=== PATIENT | male | born 1960 | race Caucasian/White ===

== ENCOUNTER 2019-12-13 13:27 | Outpatient (CLI) | payer BC, SELFPAY ==
--- NOTE | ~2019-12-13 | MR_ITS ---
EXAMINATION: MR brain/brain stem wo/w con DATE: 12/13/2019 14:28 INDICATION: Tremor, unspecified. TECHNIQUE: Magnetic resonance imaging (MRI) of the brain and brainstem was performed without and with 20 mL MultiHance intravenous contrast. Sequences included sagittal and axial T1-weighted FSE, axial diffusion-weighted FS EPI, axial T2*-weighted GRE, axial T2-weighted FLAIR Propeller, and axial T2-we ighted Propeller. Postcontrast sequences included axial and coronal T1-weighted FSE. Apparent diffusi on coefficient (ADC) maps were created. COMPARISON: Head CT 10/27/2017 FINDINGS: There are scattered areas of nonspecific increased T2-weighted signal intensity in the cere bral white matter, which is within normal limits for the patient's age. There is no intracranial hemo rrhage, acute infarction, or abnormal intracranial mass lesion. The ventricles are normal in size. Ri ght maxillary sinus is small and almost completely opacified. There is mild mucosal thickening in the other paranasal sinuses. There is a trace right mastoid effusion. IMPRESSION: 1. Normal aging brain. 2. Silent sinus syndrome involving right maxillary sinus. Reviewed, dictated and finalized at location B.
[2019-12-13 14:02] LABS: Estimated Glomerular Filt Rate > 60
== END 2019-12-13 13:28 | disposition home or self-care (01) ==
LOC: ANHIMG 13:39
PROVIDERS: PCP Family Medicine; Visit Provider Family Medicine
DX: R25.1 Tremor, unspecified (principal); L98.8 Other specified disorders of the skin and subcutaneous tissue
CPT/HCPCS: 70553; A9577

== ENCOUNTER 2024-07-05 12:41 | Outpatient (CLI) | payer BC, SELFPAY ==
--- NOTE | ~2024-07-05 | US_ITS ---
EXAM: Focused ultrasound examination of the soft tissues of the left upper trunk HISTORY: R22.2 - Localized swelling, mass and lump, trunk TECHNIQUE: Sonographic evaluation of the soft tissues of the left upper trunk were performed assessin g grayscale appearance and color Doppler flow. COMPARISON: None. FINDINGS: Within the area of palpable concern is a hyperechoic well-circumscribed focus measuring 7.5 x 3.8 x 9 .5 cm, consistent with a lipoma. Sonographic evaluation of the remainder of the soft tissues of the left upper trunk demonstrate benig n fibrofatty and fibromuscular elements without a cystic or solid lesion of concern. IMPRESSION: Lipoma within the area of palpable concern, as detailed above. Reviewed, dictated and finalized at location A.
--- OUTSIDE RECORDS SUMMARY | 2024-07-05 13:03 | XMS_ITS | Encounter Summary ---
Author Organization [facility] Address [address] [place] [id number] Care Team Providers Care Outbound Supervisor Name Role Phone Lakhwinder Romero MD Primary Care Provider [phone] Eldon Andrew MD Unavailable Encounter Details Date Type Department Care Team (Late st Contact Info) Description 10/28/2019 Hospital Orders Only [facility] Telemetry [address] [place], [place] [id number] Rogerio Milton MD [facility]. [facility] [address] [place], [place] [id number] Social History Tobacco Use Types Packs/Day Years Used Date Smoking Tobacco: Never Smokeless Tobacco: Never Alcohol Use Standard Drinks/Week Comments Yes 0 (1 standard drink = 0.6 oz pur e alcohol) AUDIT-C Answer Date Recorded Frequency of Alcohol Consumption 2-3 times glenn french 02/16/2018 Average Number of Drinks Not on file 018 Frequency of Binge Drinking Not on file 04/2017 Sex and Gender Information Value Date Recorded Sex Assigned at Not on file Legal Sex Male 8:50 PM CDT Gender Identity Not on file Sexual Orientation Not on file Occupation Industry Job Start Date Job End Date Not on file Not on file Not on file Not on file COVID-19 Exposure Response Date Recorded In the last month, have you been in contact with someone who was confirmed or suspected to have Coronavirus / COVID-19? No / Unsure 10/29/2019 6:31 AM CDT documented as of this encounter Plan of Treatment Upcoming Encounters Date Type Department Care Team (Late st Contact Info) Description 08/20/2024 10:15 AM CDT [facility] [address] [place] [address] Diane Beckett, RICARDO [address] [facility] [address] [place], [place] [id number] documented as of this encounter Visit Diagnoses Not on filedocumented in this encounter Care Teams Outbound Supervisor Relationship Specialty Start Date End Date Lakhwinder Romero MD [address] [place] [address] PCP - General FAMILY PRACTICE 01/24/18 Eldon Andrew MD [facility]. [address] [place] [address] [place] [employer] Rental Clerk CARDIOVASCULAR DISEASE 02/07/18 documented as of this encounter
--- OUTSIDE RECORDS SUMMARY | 2024-07-05 13:03 | XMS_ITS | Clinical Summary ---
Author Organization [facility] [address] Address [address] [place] [address] Care Team Providers Care Plate Keeper Name Role Phone Lakhwinder Romero MD Primary Care Provider [phone] Joselin Kam MD Unavailable Medhat Hsieh MD Unavailable [phone] Allergies No known active allergies Medications fenofibrate nanocrystallized (TRICOR,TRIGLIDE) 145 mg tablet take 1 tablet by oral route every day 90 3 01/12/20 16 Active aspirin (ASPIR-81) 81 mg tablet take 1 Tablet by oral route every day 0 0 01/12/20 16 Active Additional Information Patient not taking.Reported on 01/09/2024 amLODIPine (NORVASC) 5 mg tablet Take 0.5 tablets (2.5 mg total) by mouth daily 10/30/19 22 Active atorvastatin (LIPITOR) 20 mg tablet Take 1 tablet (20 mg total) by mouth every evening Active clopidogreL (PLAVIX) 75 mg tablet Take 1 tablet (75 mg total) by mouth daily Active clonazePAM (KlonoPIN) 0.5 mg tablet Take 0.5 tablets (0.25 mg total) by mouth nightly 45 tablet 3 01/09/20 24 025 Active carbidopa-levodopa (SINEMET) 25-100 mg per tablet Take 4 tabs at 600, 3 tabs at 1200 and 4 tabs at 2000 990 tablet 3 04/16/20 24 Active Active Problems Problem Noted Date Diagnosed Date CAD (coronary artery disease) 10/17/2023 Hypertension, essential, benign 10/17/2023 PD (Parkinson's disease) 11/11/2021 Assessment & Plan (10/17/2023 10:36 AM CDT): Mr. 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 He had some early imbalance, REM behavior. He initially had an incomplete response to levodopa but his symptom complex was most consistent with idiopathic PD. Historically he has also complained of some short term memory loss (though history of multiple concussions) but had no cognitive impairment on MOCA/MMSE in 2022. He had no cerebellar symptoms and besides erectile dysfunction had no autonomic symptoms making MSA less likely. PSP and CBD are also unlikely. Should he have brain imaging it would be good to look at since he had vascular disease, but the onset and progression thus far continue look more like idiopathic PD. When he increased his levodopa from 3 tabs to 4 tabs he noticed improvement in tremor and shuffling gait. He has intervally decided to reduce back to 3 tablets and is currently satisfied with his current levodopa benefit though his MDS-UPDRS is worse today than at past visit in terms of rigidity and bradykinesia. Since his last visit he reduced his levodopa without perceived significant change in benefit by him. I suspect his rigidity and bradykinesia are more pronounced today due to this reduction. He can consider gradually increasing back to 4 tabs TID if desired. He continues to have RBD symptoms and has not yet trialed melatonin though we discussed this again at today's visit. At last visit we reviewed safe sleep environment (i.e. removing hard or sharp nearby objects, padding headboard/footboard). He would benefit from PT for gait training and strengthening/stretching exercises for rigidity as well as speech therapy for his hypophonia that has become more bothersome. In the past he has been reluctant to participate in either due to time constraints as he and his are already coordinating multiple therapy and home services for their child. I provided him with external referrals for both PT and ST and encouraged him to even be seen for a couple of visits to get baseline recommendations and individualized exercises for him to work on at home. As for his bilateral foot pain, the etiology remains unclear but it has overall improved in both frequency and severity since at last visit. It had been evaluated by his PCP and subsequently a warp changer (records not available for review) and underwent cortisone injections with partial relief. The pain he has described in the past is in the superficial peroneal distribution. He continues to deny any numbness or paraesthesias. At last visit he was noticed to have reduced vibratory sensation at bilateral distal interphalangeal joints though intact proprioception, and still does not have weakness on exam today. He will monitor for development of any new symptoms and I recommended he continue to follow-up with his warp changer though he will likely seek to establish podiatry care elsewhere. Recommendations: Can consider gradually increasing carbidopa-levodopa back to 4 tablets three times a day from 3 tablets three times a day to see if this helps with stiffness, slowness, shuffling, and dexterity Increase to 3.5 tabs three times a day for 1 week then increase to 4 tabs three times a day For dream enactment, start melatonin 5 mg, and may increase by 1 tab at bedtime every week to goal of about 15-20 mg nightly. Send updates on benefit. Physical therapy referral for gait/balance training, strength/stretching, and exercise regimen recommendations Speech therapy referral for dysarthria and hypophonia Parkinson Voice Project website access instructions provided for a free, self- paced Parkinson Disease speech therapy resource [employer] YouTube exercise channel access instructions provided Follow-up as scheduled with Dr. Kam January 16, 2024 He remains interested in clinical research and at last visit with Dr. Kam, was considered a potential candidate for PIB/PAND or the PT studies, especially the back pain study In the future, should he have incomplete tremor benefit and good cognition in a year Dr. Kam would consider bilateral STN DBS Follow-up with PCP or podiatry for ongoing foot pain Assessment & Plan (07/13/2023 11:14 AM CDT): Mr. 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 He had some early imbalance, REM behavior. He initially had an incomplete response to levodopa but his symptom complex was most consistent with idiopathic PD. Since increasing his levodopa from 3 tabs to 4 tabs he has noticed improvement in tremor and shuffling gait and is currently satisfied with his current levodopa benefit. Historically he has also complained of some short term memory loss (though history of multiple concussions) but had no cognitive impairment on MOCA/MMSE in 2022. He had no cerebellar symptoms and besides erectile dysfunction had no autonomic symptoms making MSA less likely. PSP and CBD are also unlikely. Should he have brain imaging it would be good to look at since he had vascular disease, but the onset and progression thus far continue look more like idiopathic PD. Since his last visit his RBD symptoms have become more frequent and bothersome with recent injuries. Though he does not have insomnia, we discussed a trial of melatonin to see if this may improve the severity of his RBD symptoms. We also discussed ensuring a safe sleep environment (i.e. removing hard or sharp nearby objects, padding headboard/footboard). He is currently most interested in further evaluation of his bilateral anterior foot pain, of which the etiology remains unclear. He has already been evaluated by his PCP and subsequently a warp changer (records not available for review) and underwent cortisone injections with only partial relief. The pain he describes is in the superficial peroneal distribution though at this time he denies any numbness or paraesthesias. He did have reduced vibratory sensation at bilateral distal interphalangeal joints though intact proprioception, and no weakness on exam today. As his pain has become intermittent, we discussed that he journal or make note of the times in which the pain recurs and any activities that precede this as well as observing for any dyskinesias or dystonia in his feet or toes. He does have increased lower extremity rigidity today than in the past and has not done PT or strength/stretching exercises in approximately 1 year. He preferred to see his physical therapist friend at this time rather than placing a formal PT referral but is motivated to work on this. In terms of his hypophonia, he has never done ST and as it is mild at this juncture without any associated dysphagia, he prefers to first try speech exercises through the PD voice project and information on how to access was provided. Recommendations: Resume strength and stretching with your physical therapist as well as working on gait and balance Begin speech therapy exercises through the Parkinson Voice Project (patient instructions given) Start melatonin 3 mg nightly for REM behavior sleep disorder and update us in 1- 2 weeks Monitor foot movements and if you observe any toe or foot curling. Note whether these occur and if so, how they relate to any ongoing foot pain - update our office in 1-2 weeks He will follow-up with me in 3-4 months and as scheduled with Dr. Kam January 16, 2024 He remains interested in clinical research and at last visit with Dr. Kam, was considered a potential candidate for PIB/PAND or the PT studies, especially the back pain study In the future, should he have incomplete tremor benefit and good cognition in a year Dr. Kam would consider bilateral STN DBS Assessment & Plan (01/05/2023 10:32 AM CDT): He had Ciro and Yahr stage 2 parkinsonism characterized by asymmetric resting/postural tremor, bradykinesia, rigidity and postural instability. He had some early imbalance, REM behavior as well as incomplete response to levodopa but his symptom complex was most consistent with idiopathic PD. He also complained of some short term memory loss (though history of multiple concussions). He had no cerebellar symptoms and besides erectile dysfunction had no autonomic symptoms making MSA less likely. PSP and CBD were unlikely. Should he have brain imaging it would be good to look at since he had vascular disease, but the onset and progression look more like PD. He currently took carbidopa/levodopa 3 tabs TID with little benefit and no side effects. I suggested they continue to titrate the dose up to 5 tabs TID. He is interested in clinical research and may be a good candidate for PIB/PAND or the PT studies, especially the back pain study. Should he have incomplete tremor benefit and good cognition in a year I would consider bilateral STN DBS. Assessment & Plan (11/11/2021 9:20 AM CDT): He had Ciro and Yahr stage 2.5 parkinsonism characterized by asymmetric resting/postural tremor, bradykinesia, rigidity and postural instability. He had some early imbalance, REM behavior as well as incomplete response to levodopa but his symptom complex was most consistent with idiopathic PD. He also complained of some short term memory loss (though history of multiple concussions). He had no cerebellar symptoms and besides erectile dysfunction had no autonomic symptoms making MSA less likely. PSP and CBD were unlikely. Should he had brain imaging it would be good to look at since he had vascular disease, but the onset and progression look more like PD. He currently took carbidopa/levodopa 2 tabs TID with little benefit and no side effects. I suggested they continue to titrate the dose up to 3 tabs TID. He will continue to follow up with Dr. Lama who is doing a good job in initiating levodopa treatment for Parkinson disease. He is interested in clinical research and may be a good candidate for PIB/PAND or the PT studies, especially the back pain study. He will need a video when he returns in a year. Should he have incomplete tremor benefit and good cognition in a year I would consider bilateral STN DBS. REM sleep behavior disorder 11/11/2021 Angina pectoris 04/14/2021 Chest pain 04/14/2021 Overview (10/17/2023): Last Assessment & Plan: Given his presentation of chest pain without elevated cardiac enzymes and no acute ischemic changes, I recommended that he undergo nuclear stress testing. I have personally reviewed his nuclear stress test and his echocardiogram and they are both within normal limits. He can be discharged safely from a cardiovascular perspective. Hypersomnolence 11/24/2016 Chronic coronary artery disease 03/16/2016 History of myocardial infarction 03/16/2016 Hypertension 03/16/2016 Dyslipidemia 03/16/2016 Coronary artery stenosis 01/22/2016 Snoring 01/12/2016 Overview (07/29/2016): Snoring Essential hypertension 01/12/2016 Overview (07/29/2016): Essential hypertension Coronary arteriosclerosis in [place] artery 01/11 Overview (07/29/2016): Coronary artery disease involving [place] coronary artery of [place] heart with angina pectoris Hyperlipidemia LDL goal <70 01/12/2016 Overview (07/29/2016): Hyperlipidemia LDL goal <70 Encounters Date Type Department Care Team Description 04/23/2024 Orders Only [facility] Movement Disorders [address] [place] [id number] Joselin Kam MD REM sleep behavior disorder (Primary Dx) from Last 3 Months Immunizations Immunization Administration Dates Next Due Tdap 07/08/2022,08/26/2016 Surgical History Surgery Date Site/Laterality Comments CARPAL TUNNEL RELEASE 04/18/2003 - 04/17/2004 HEART SURGERY 04/18/2015 - 04/17/[address] Medical History Medical History Date Comments Hx Other Medical CAD, carpal patrick shayy syndrome, snoring and probable; Comments: MAF 01/13/2016 - Hypertension Parkinson disease (HCC) Family History Medical History Relation Name Comments No Known Problems Brother Hugo No Known Problems Daughter Dementia Father Ernesto Hypertension Father Ernesto Hypertension; Bone cancer Maternal Grandfather Jas Alzheimer's disease Mother Dominique Alzheime r's disease; Dementia Mother Dominique Dementia; Parkinsonism Other maternal uncle Dementia Paternal Grandfather Wilfred Heart disease Paternal Grandmother Bridgett Stroke Paternal Grandmother Bridgett Atrial fibrillation Sister 1 Nadia Hypertension Sister 1 Nadia No Known Problems Sister 2 Vivienne Hypertension Sister 3 Trupti ADD / ADHD Son 1 Autism spectrum disorder Son 2 Epilepsy Son 2 Relation Name Status Comments Brother Hugo Alive Daughter Alive Father Ernesto (Age 86) Maternal Grandfather Jas Maternal Grandmother Rosey (Age 74) Mother Dominique (Age 84) Other Paternal Grandfather Wilfred (Age 74) Paternal Grandmother Bridgett (Age 72) Sister 1 Nadia Alive Sister 2 Vivienne Alive Sister 3 Trupti Alive Son 1 Alive Son 2 Alive Social History Tobacco Use Types Packs/Day Years Used Date Smoking Tobacco: Never Passive Smoke Exposure: Never Smokeless Tobacco: Never Tobacco Cessation:Counseling Given: Not Answered Alcohol Use Standard Drinks/Week Comments Yes 2 (1 standard drink = 0.6 oz pur e alcohol) Personal Safety Answer Date Recorded Have you ever been in or are you currently in a harmful physical or emotional relationship or is someone making you feel afraid or unsafe? 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 Not on file Not on file Obstetrics History Last Filed Vital Signs Vital Sign Reading Time Taken Comments Blood Pressure 113/75 01/09/2024 3:02 PM CDT Pulse 71 01/09/2024 3:02 PM CDT Temperature 36.3 C (97.3 F) 01/09/2024 3:02 PM CDT Respiratory Rate 16 07/08/2022 2:59 PM CDT Oxygen Saturation 93% 07/08/2022 2:59 PM CDT Inhaled Oxygen Concentration - - Weight 101.4 kg (223 lb 8.7 oz) 01/09/2024 3:02 PM CDT Height 177.8 cm (5' 10 ) 01/09/2024 3:02 PM CDT Body Mass Index 32.08 01/09/2024 3:02 PM CDT Plan of Treatment Health Maintenance Due Date Last Done Comments Colon Cancer Screening-Colonoscopy 1962 Hepatitis C Screening 1960 Prostate Cancer Screening-PSA 1962 Hepatitis B Screening 02/22/1980 Regular Well Visit/Exam 18-64 02/22/1980 Pneumococcal vaccine <65 (1 of 2 - PCV) 1981 Zoster Vaccine (1 of 2) 02/22/2012 Covid-19 Vaccine (4 - season) 2023 04/04/2021, 09/23/2020, 08/26/2020 Influenza Vaccine (#1) 2023 Depression Screening 01/08/2025 01/09/2024 DTaP/Tdap/Td Vaccine (3 - Td or Tdap) 07/08/2032, 08/26/2016 Insurance [facility] CHOICE PLUS BLUE [facility] [place] ANTHEM ACCESS CHOICE BLUE ACC CHOICE OOS ANTHEM ACCESS CHOICE ANTHEM ACCESS CHOICE Advance Directives For more information, please contact: [phone] * Full Code (Latest Code Status on File) Date Activated Date Inactivated Comments 07/19/2019 9:40 PM 07/20/2019 10:32 PM Care Teams Plate Keeper Relationship Specialty Start Date End Date Lakhwinder Romero MD PCP - General 07/16/16 Joselin Kam MD [address] [place] [address] Consulting Physician Neurology 11/11/21 Medhat Hsieh MD [address] [place] [id number] Fellow Neurology 11/11/21
--- OUTSIDE RECORDS SUMMARY | 2024-07-05 13:03 | XMS_ITS | Encounter Summary ---
Author Organization [facility] Address [address] [place] [address] Care Team Providers Care Hospice Liaison Name Role Phone Lakhwinder Romero MD Primary Care Provider [phone] Lakhwinder Romero MD Primary Care Provider [phone] Joselin Kam MD Unavailable Medhat Hsieh MD Unavailable [phone] Encounter Details Date Type Department Care Team (Late st Contact Info) Description 06/07/2016 Orders Only [facility] ProviderBonnie MD [address] [place] [id number] Social History Tobacco Use Types Packs/Day Years Used Date Smoking Tobacco: Never Alcohol Use Standard Drinks/Week Comments Yes 0 (1 standard drink = 0.6 oz pur e alcohol) Sex and Gender Information Value Date Recorded Sex Assigned at Not on file 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 Historical Provider MD [facility] WILLIE SÁNCHEZ Final Result documented in this encounter Visit Diagnoses Not on filedocumented in this encounter Additional Health Concerns Infection Onset Date Last Indicated Resolved Time COVID19 Comment:Per ED RN no concern for COVID and they are not going to test. Joellensofia IPS 07/19/19 07/19/2019 07/19/2019 07/19/2019 6: 44 PM CDT documented as of this encounter Care Teams Hospice Liaison Relationship Specialty Start Date End Date Lakhwinder Romero MD PCP - General 07/16/16 Lakhwinder Romero MD PCP - General 03/05/16 07/15/16 Joselin Kam MD [address] [place] [address] Consulting Physician Neurology 11/11/21 Medhat Hsieh MD [address] [address] Fellow Neurology 11/11/21 documented as of this encounter
--- OUTSIDE RECORDS SUMMARY | 2024-07-05 13:03 | XMS_ITS | Encounter Summary ---
Author Organization [facility] Address [address] [place] [address] Care Team Providers Care Juvenile Officer Name Role Phone Lakhwinder Romero MD Primary Care Provider [phone] Eldon Andrew MD Unavailable [phone] Encounter Details Date Type Department Care Team (Late st Contact Info) Description 07/02/2024 Orders Only [facility] [address] [place] [address] Emiliano Cheek, LABORER POWERHOUSE [address] [address] Social History Tobacco Use Types Packs/Day Years Used Date Smoking Tobacco: Never Smokeless Tobacco: Never Alcohol Use Standard Drinks/Week Comments Not Currently 0 (1 standard drink = 0.6 oz pur e alcohol) AUDIT-C Answer Date Recorded Frequency of Alcohol Consumption 2-3 times a wee k 02/16/2018 Average Number of Drinks Not on file 018 Frequency of Binge Drinking Not on file 04/2017 PHQ-2 Answer Date Recorded PHQ-2 Score - If the patient scores above 3, please move on to questions 3-9 0 02/16/2022 Sex and Gender Information Value Date Recorded Sex Assigned at Not on file Legal Sex Male 8:50 PM CDT Gender Identity Not on file Sexual Orientation Not on file Occupation Industry Job Start Date Job End Date Not on file Not on file Not on file Not on file documented as of this encounter Functional Status * RETIRED Are you deaf or do you have serious difficulty hearing Answer Date of Assessment Author Status No 04/15/2021 5:11 AM CONSULTING SOFTWARE ENGINEER Activ e * RETIRED Are you blind or do you have serious difficulty seeing, even when wearing glasses? Answer Date of Assessment Author Status No 04/15/2021 5:11 AM CONSULTING SOFTWARE ENGINEER Activ e * Do you have serious difficulty walking or climbing stairs? Answer Date of Assessment Author Status No 04/15/2021 5:11 AM Per Delaney R N Active * Do you have difficulty dressing or bathing? Answer Date of Assessment Author Status No 04/15/2021 5:11 AM CONSULTING SOFTWARE ENGINEER Per Balderrama R N Active * Because of a physical, mental, or emotional condition, do you have difficulty doing errands alone such as visiting a doctor's office or shopping? Answer Date of Assessment Author Status No 04/15/2021 5:11 AM Per Delaney R N Active documented as of this encounter Mental Status * Because of a physical, mental, or emotional condition, do you have serious difficulty concentrating, remembering, or making decisions? Answer Entry Date Author Status No 04/15/2021 5:11 AM Per Delaney R N Active documented in this encounter Plan of Treatment Upcoming Encounters Date Type Department Care Team (Late st Contact Info) Description 08/20/2024 10:15 AM CDT Office Visit [facility] [address] [address] Diane Beckett FNP [address] [place] [id number] documented as of this encounter Results * HCV RNA,PCR QUANT. (07/02/2024 8:45 AM CDT) Pathologist [facility] HEPATITIS C RNA PCR QNT <15 IU/mL 07/05/2024 12:20 PM CDT [facility] DANIEL MORA Comment: HCV RNA Not Detected HEP C RNA PCR QNT LOG <1.18 log IU/mL 07/05/2024 12:20 PM CDT [facility] DANIEL MORA Comment: HCV RNA Not Detected Reference Range: Not Detected IU/mL Not Detected Log IU/mL For additional information please refer to http://education.mParticle/faq/QOA46l8 (This link is being provided for informational/ educational purposes only.) Test Performed by Candelaria Bingham, [facility], [address] [place] [address] Robert Connors M.D., Ph.D., Director of Laboratories , [facility] [id number] 07/02/2024 8:45 AM CDT us Emiliano Cheek NP LABORATORY Final Result Performing Organization Address City/[facility]/ZIP Co de Phone Number [facility] [address] , [place] [phone] * FREE T3 (07/02/2024 8:45 AM CDT) FREE T3 3.1 2.18 - 3.98 PG/ML 07/02/2024 12:19 PM CDT [facility] 07/02/2024 8:45 AM CDT us Emiliano Cheek NP LABORATORY Final Result Performing Organization Address City/[facility]/ZIP Co de Phone Number [facility] [address] [place] [address], [place] [phone] * THYROXINE, FREE (FT4) (07/02/2024 8:45 AM CDT) FREE T4 1.03 0.76 - 1.46 NG/DL 07/02/2024 2:34 PM CDT [facility] 07/02/2024 8:45 AM CDT us Emiliano Cheek NP LABORATORY Final Result [facility] [address] [place] [address], [place] [phone] * (ABNORMAL) THYROID STIM HORMONE TSH (07/02/2024 8:45 AM CDT) TSH 4.293(H) 0.358 - 3.74 uIU/ML 07/02/2024 10:02 AM CDT [facility] Comment: HIGH DOSES OF BIOTIN MAY INTERFERE WITH THIS TEST RESULT. CORRELATION TO CLINICAL HISTORY AND PRESENTATION RECOMMENDED. 07/02/2024 8:45 AM CDT Emiliano Cheek NP LABORATORY Final Result Performing Organization Address City/[facility]/ZIP Co de Phone Number [facility] [address] [place] [address], [place] [phone] * PROSTATE SPECIFIC ANTIGEN,SCREENING (07/02/2024 8:45 AM CDT) PSA 1.53 <4.00 NG/ML 07/02/2024 9:24 AM CDT [facility] Comment: Test was performed using the Siemens method. Results obtained with other assay methods or kits cannot be used interchangeably with results obtained by the Siemens method. 07/02/2024 8:45 AM CDT us Emiliano Cheek NP LABORATORY Final Result [facility] [address] [place] [address], [place] [phone] * LIPID PANEL (07/02/2024 8:45 AM CDT) CHOLESTEROL 121 <200.0 MG/DL 07/02/2024 10:02 AM CDT [facility] TRIGLYCERIDES 56 <150 MG/DL 07/02/2024 10:02 AM CDT [facility] HDL 44 >40.0 MG/DL 07/02/2024 10:02 AM T [facility] LDL (CALCULATED) 66 <100 MG/DL 07/03/19 10:02 AM CDT [facility] NON HDL CHOLESTEROL 77 <130 MG/DL 07/02 10:02 AM T [facility] CHOL/HDL RATIO 2.8 0.0 - 4.5 07/02/2024 10:02 AM T [facility] VLDL CALCULATION 11 5 - 55 MG/DL 07/02/2024 10:02 AM T [facility] LIPID INTERPRETATION 07/02/2024 10:02 AM T [facility] Comment: NIH CONCENSUS REPORT RECOMMENDATIONS: ADULT CHILD LOW RISK: CHOLESTEROL <200 <170 TRIGLYCERIDE <150 --- HDL >=60 --- LDL <100 <110 BORDERLINE: CHOLESTEROL 200-239 170-199 TRIGLYCERIDE 150-199 --- HDL 40-59 --- LDL 100-159 110-129 HIGH RISK: CHOLESTEROL >=240 >=200 TRIGLYCERIDE >=200 --- HDL <40 --- LDL >=160 >=130 07/02/2024 8:45 AM CDT Emiliano Cheek NP LABORATORY Final Result [facility] [address] [place] [address], * (ABNORMAL) COMPREHENSIVE METABOLIC PANEL (07/02/2024 8:45 AM CDT) [facility] GLUCOSE 91 70 - 99 MG/DL 07/02/2024 10:02 AM T [facility] BUN 18 7 - 18 MG/DL 07/02/2024 10:02 AM T [facility] CREATININE S/P/B 1.14 0.7 - 1.3 MG/DL 07/02/2024 10:02 AM [facility] SODIUM S/P/B 137 136 - 145 MMOL/L 07/02/2024 10:02 AM [facility] POTASSIUM S/P/B 3.8 3.5 - 5.1 MMOL/L 07/02/2024 10:02 AM [facility] CHLORIDE S/P/B 102 100 - 108 MMOL/L 07/02/2024 10:02 AM [facility] CO2 29.8 21 - 32 MMOL/L 07/02/2024 10:02 AM [facility] CALCIUM S/P/B 9.3 8.5 - 10.1 MG/DL 07/02/2024 10:02 AM [facility] BILIRUBIN TOTAL S/P/B 0.7 0.2 - 1.2 MG/DL 07/02/2024 10:02 AM [facility] TOTAL PROTEIN S/P/B 7.2 6.4 - 8.2 G/DL 07/02/2024 10:02 AM [facility] ALBUMIN S/P/B 4.1 3.4 - 5.0 G/DL 07/02/2024 10:02 AM [facility] AST 19 15 - 37 U/L 07/02/2024 10:02 AM [facility] ALT 20 16 - 60 U/L 07/02/2024 10:02 AM [facility] ALKALINE PHOSPHATASE S/P/B 50 50 - 136 U/L 07/02/2024 10:02 AM [facility] ANION GAP 5.2 5 - 15 MMOL/L 07/02/2024 10:02 AM [facility] BUN CREATININE RATIO 15.8 6 - 26 07/02/2024 10:02 AM CDT [facility] A/G RATIO 1.3 1.0 - 2.0 RATIO 07/02/2024 10:02 AM CDT [facility] GFR ESTIMATE 73(L) >90 ML/MIN/1.7 3 M2 07/02/2024 10:02 AM CDT [facility] Comment: NOTE: eGFR is not calculated for patients <18 years of age. This is an estimated GFR calculation using the new CKD EPI creatinine equation without race and so does not require a correction factor for race. This estimated GFR should not be used for calculating drug doses. 07/02/2024 8:45 AM CDT Emiliano Cheek NP LABORATORY Final Result [facility] [address] [place] [address], * (ABNORMAL) CBC W/DIFF AUTOMATED (07/02/2024 8:45 AM CDT) WBC 5.71 4.4 - 11.0 x10'3/uL 07/02/2024 8:57 AM CDT [facility] RBC 4.66 4.50 - 5.90 x10'6/uL 07/02/2024 8:57 AM CDT [facility] HGB 13.9(L) 14.0 - 17.5 G/DL 07/02/2024 8:57 AM CDT [facility] HCT 40.7(L) 41.5 - 50.4 % 07/02/2024 8:57 AM CDT [facility] MCV 87.3 80.0 - 96.0 FL 07/02/2024 8:57 AM CDT [facility] MCH 29.8 26.5 - 31.4 PG 07/02/2024 8:57 AM CDT [facility] MCHC 34.2 31.9 - 34.8 G/DL 07/02/2024 8:57 AM CDT [facility] RDW 12.6 12.3 - 14.3 % 07/02/2024 8:57 AM CDT [facility] PLT 192 151 - 353 x10'3/uL 07/02/2024 8:57 AM CDT [facility] MPV 9.8 9.7 - 11.9 FL 07/02/2024 8:57 AM CDT [facility] RBC MORPHOLOGY NORMAL 07/02/2024 8:57 AM CDT [facility] PLT MORPH. NORMAL 07/02/2024 8:57 AM CDT [facility] WBC MORPHOLOGY NORMAL 07/02/2024 8:57 AM CDT [facility] LYMPHOCYTES % 25.9 15.8 - 45.0 % 07/02/2024 8:57 AM CDT [facility] NEUTROPHILS % 55.0 42.1 - 71.9 % 07/02/2024 8:57 AM CDT [facility] MONOCYTES % 13.3(H) 5.7 - 12.5 % 07/02/2024 8:57 AM T [facility] EOSINOPHILS 4.9 0.0 - 5.6 % 07/02/2024 8:57 AM CDT [facility] BASOPHILS 0.7 0.0 - 1.3 % 07/02/2024 8:57 AM CDT [facility] ABS. NEUTROPHILS 3.14 1.40 - 6.00 x10'3/uL 07/02/2024 8:57 AM CDT [facility] IMMATURE GRANS % 0.2 0.0 - 0.5 % 07/02/2024 8:57 AM CDT [facility] ABS. 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 [address] [place] [address] [place] Verification Manager CARDIOVASCULAR DISEASE 02/07/18 documented as of this encounter
--- OUTSIDE RECORDS SUMMARY | 2024-07-05 13:03 | XMS_ITS | Encounter Summary ---
Author Organization [facility] Address [address] [place] [address] Care Team Providers Care Underwear Welter Name Role Phone Lakhwinder Romero MD Primary Care Provider [phone] Eldon Andrew MD Unavailable [phone] Encounter Details Date Type Department Care Team (Late st Contact Info) Description 08/31/2021 [employer] Message Enc [facility] - [address], [address] [place] [address] [facility] Provider Meds Social History Tobacco Use Types Packs/Day Years Used Date Smoking Tobacco: Never Smokeless Tobacco: Never Alcohol Use Standard Drinks/Week Comments Yes 0 (1 standard drink = 0.6 oz pur e alcohol) AUDIT-C Answer Date Recorded Frequency of Alcohol Consumption 2-3 times a christian manolo 02/16/2018 Average Number of Drinks Not on [...] Exposure Response Date Recorded In the last 10 days, have yo u been in contact with someone who was confirmed or suspected to have Coronavirus/COVID-19? No / Unsure 08/27/2021 3:59 PM CDT documented as of this encounter Functional Status * RETIRED Are you deaf or do you have serious difficulty hearing Answer Date of Assessment Author Status No 04/15/2021 5:11 AM FARM RANCHER Activ e * RETIRED Are you blind or do you have serious difficulty seeing, even when wearing glasses? Answer Date of Assessment Author Status No 04/15/2021 5:11 AM FARM RANCHER Activ e * Do you have serious difficulty walking or climbing stairs? Answer Date of Assessment Author Status No 04/15/2021 5:11 AM FARM RANCHER Per Balderrama R N Active * Do you have difficulty dressing or bathing? Answer Date of Assessment Author Status No 04/15/2021 5:11 AM FARM RANCHER Per Balderrama R N Active * Because of a physical, mental, or emotional condition, do you have difficulty doing errands alone such as visiting a doctor's office or shopping? Answer Date of Assessment Author Status No 04/15/2021 5:11 AM FARM RANCHER Per Balderrama R N Active documented as of this encounter Mental Status * Because of a physical, mental, or emotional condition, do you have serious difficulty concentrating, remembering, or making decisions? Answer Entry Date Author Status No 04/15/2021 5:11 AM FARM RANCHER Per Balderrama R N Active documented in this encounter Plan of Treatment Upcoming Encounters Date Type Department Care Team (Late st Contact Info) Description 08/20/2024 10:15 AM CDT Office Visit [facility] [address] [place] [address] Diane Beckett, HARDENING MACHINE OPERATOR HELPER 3 [facility] [address] [place] [address] documented as of this encounter Visit Diagnoses Not on filedocumented in this encounter Care Teams Underwear Welter Relationship Specialty Start Date End Date Lakhwinder Romero MD [address] [place] [address] PCP - General FAMILY PRACTICE 01/24/18 Eldon Andrew MD Three [facility]. [address] [place] [address] [place] Clinical Informatics Specialist CARDIOVASCULAR DISEASE 02/07/18 documented as of this encounter
--- OUTSIDE RECORDS SUMMARY | 2024-07-05 13:03 | XMS_ITS | Clinical Summary ---
Author Organization [facility] Address [address], [place] [address] Phone Care Team Providers Care Ship Yard Electrical Person Name Role Phone Lakhwinder Romero MD Primary Care Provider [phone] Austin Silverio DO Unavailable [phone] Allergies No known active allergies Medications amLODIPine (NORVASC) 5 MG Tablet Take 5 mg by mouth daily. Active lisinopril (PRINIVIL, ZESTRIL) 20 MG Tablet Take 20 mg by mouth daily. Active metoprolol Succinate (TOPROL-XL) 25 MG TABLET SR 24 HR Take 12.5 mg by mouth. 05/30/2017 Active aspirin EC (ASPIRIN 81) 81 MG Tablet Delayed Response Take 81 mg by mouth. 01/12/2016 Active atorvastatin (LIPITOR) 40 MG Tablet Take 40 mg by mouth. 05/30/2017 Active fenofibrate (TRICOR) 145 MG Tablet Take 145 mg by mouth. 01/12/2016 Active tamsulosin (FLOMAX) 0.4 MG Capsule Take 0.4 mg by mouth daily. Active omeprazole (PRILOSEC) 40 MG CAPSULE DELAYED RELEASE Take 1 Cap by mouth daily. 90 Cap 3 01/08/2019 Active Family History Medical History Relation Name Comments Hypertension Brother Dementia Father Hypertension Father Alzheimer's Disease Mother Dementia Mother Hypertension Mother Hypertension Sister Relation Name Status Comments Brother Father Alive Mother Sister Social History Tobacco Use Types Packs/Day Years Used Date Smoking Tobacco: Never Smokeless Tobacco: Never Alcohol Use Standard Drinks/Week Comments Yes 2 (1 standard drink = 0.6 oz pur e alcohol) rarely Sex and Gender Information Value Date Recorded Sex Assigned at Not on file Legal Sex Male 1:55 PM HEAD UP OPERATOR HELPER Gender Identity Not on file Sexual Orientation Not on file Last Filed Vital Signs Vital Sign Reading Time Taken Comments Blood Pressure 142/74 01/08/2019 1:46 PM CDT Pulse 52 01/08/2019 1:46 PM CDT Temperature - - Respiratory Rate - - Oxygen Saturation 98% 01/08/2019 1:46 PM CDT Inhaled Oxygen Concentration - - Weight 104.3 kg (230 lb) 01/09/2019 11:00 AM CDT Height 177.8 cm (5' 10 ) 01/09/2019 11:00 AM CDT Body Mass Index 33 01/09/2019 11:00 AM CDT Plan of Treatment Health Maintenance Due Date Last Done Comments Hepatitis C Virus (HCV) Screening 1960 TdaP Immunization 1960 Cologuard 02/22/2012 Immunochemical Fecal Occult Blood 02/22/2012 Pneumococcal Immunization (5 0+ years) (1 of 1 - PCV) 02/22/2012 Zoster Immunization (1 of 2) 02/22/2012 Influenza Immunization (#1) 2023 SARS-COV-2 Immunization (2023- season) 2023 04/04/2021, 09/23/2020, 08/26/2020 Colonoscopy 08/19/2025 08/20/2015 Colorectal Cancer Screening 08/19/2025 Respiratory Syncytial Virus (RSV) Immunization (Adult) (1 - 1-dose 75+ series) 2037 08/20/2015 PSA Discussion Discontinued 01/26/2019 Hepatitis B Immunization Aged Out No longer eligible based on patient's age to complete this topic Meningococcal Immunization (ACWY) Aged Out No longer eligible based on patient's age to complete this topic Rotavirus Immunization Aged Out No lo nger eligible based on patient's age to complete this topic Procedures Procedure Name Priority Date/Time Associated Diagnosis Comments PSA DIAGNOSTIC,TOTAL Routine 01/26/2019 Prostate disease HM COLONOSCOPY Routine 08/20/2015 from Last 3 Months or Most Recently Relevant to Health Maintenance Results * PSA DIAGNOSTIC,TOTAL (01/26/2019) PSA (PROSTATE SPECIFIC ANTIGEN) 1.06 ng/mL Blood specimen (specimen) 01/26/2019 us Maura Curiel MICA PARTS SPRAYER, ULTRASOUND TECH CHEMISTRY ORDERABLES Fin al Result * COLONOSCOPY (08/20/2015) Lakhwinder Romero MD PROCEDURE/MINOR SURGICAL ORD ERABLES Final Result from Last 3 Months or Most Recently Relevant to Health Maintenance Insurance Care Teams Ship Yard Electrical Person Relationship Specialty Start Date End Date Lakhwinder Romero MD [address] [place] [id number] PCP - General Family Medicine 08/27/15 Austin Silverio DO [place] [address] [place] [id number] Gastroenterology 08/27/15
--- OUTSIDE RECORDS SUMMARY | 2024-07-05 13:03 | XMS_ITS | Clinical Summary ---
Author Organization [facility] Address [facility] [place] [address] Care Team Providers Care Core Fitter Name Role Phone Lakhwinder Romero MD Primary Care Provider [phone] Eldon Andrew MD Unavailable Allergies No known active allergies Medications aspirin EC (ASPIRIN EC) 81 MG tablet Take 1 tablet (81 mg total) by mouth daily. 90 tablet 2 11/25/2020 Active atorvastatin (LIPITOR) 20 MG tablet Take 1 tablet (20 mg total) by mouth every evening. 01/13/2023 Active carbidopa-levod opa (SINEMET) 25-100 MG tablet 4 tablets in AM, 2 tabs at noon, and 4 qHS 08/13/2022 Active sildenafil (VIAGRA) 50 MG tablet Take 1 tablet (50 mg total) by mouth daily as needed for Erectile Dysfunction. 90 tablet 1 02/20/2024 Active amLODIPine (NORVASC) 2.5 MG tablet Take 1 tablet by mouth once daily 90 tablet 1 04/16/2024 Active fenofibrate (TRICOR) 145 MG tablet Take 1 tablet by mouth once daily 90 tablet 1 04/24/2024 Active clopidogrel (PLAVIX) 75 MG tablet TAKE 1 TABLET DAILY 90 tablet 1 05/14/2024 Active Active Problems Problem Noted Date Diagnosed Date Chest pain 04/14/2021 Assessment & Plan (04/20/2021 3:02 PM HEAD SETTER): Given his presentation of chest pain without elevated cardiac enzymes and no acute ischemic changes, I recommended that he undergo nuclear stress testing. I have personally reviewed his nuclear stress test and his echocardiogram and they are both within normal limits. He can be discharged safely from a cardiovascular perspective. Angina pectoris 04/14/2021 Coronary arteriosclerosis in [place] artery 01/11 Overview (04/14/2021): Coronary artery disease involving [place] coronary artery of [place] heart with angina pectoris Essential hypertension 01/12/2016 Overview (04/14/2021): Essential hypertension Hypertension, essential, benign Dyslipidemia CAD (coronary artery disease) Encounters Date Type Department Care Team Description 07/02/2024 8:37 AM CDT - 07/02/2024 11:59 PM CDT Hospital Encounter [facility] [address] [place] [address] Nicola Cheek NP Arrived Discharge Disposition: Home or Self Care (Routine Discharge) 07/02/2024 8:35 AM CDT - 07/02/2024 8:36 AM CDT Hospital Encounter [facility] [address] [place] [address] Nicola Cheek NP Arrived Discharge Disposition: Home or Self Care (Routine Discharge) 07/02/2024 Orders Only [facility] [address] [place] [address] Nicola Cheek NP 07/02/2024 Travel 06/28/2024 Telephone [facility], [address] [address] Eldon Andrew MD Surgical Clearance from Last 3 Months Immunizations Name Administration Dates Next Due Tdap (Generic) 07/08/2022 Family History Medical History Relation Comments Hypertension Father Hypertension Mother Relation Status Comments Brother Alive Father Alive Maternal Grandfather Maternal Grandmother Mother (Age 84) Paternal Grandfather Paternal Grandmother Sister 1 Alive Sister 2 Alive Sister 3 Alive Social History Tobacco Use Types Packs/Day Years Used Date Smoking Tobacco: Never Smokeless Tobacco: Never Tobacco Cessation:Counseling Given: Not Answered Alcohol Use Standard Drinks/Week Comments Not Currently 0 (1 standard drink = 0.6 oz pur e alcohol) AUDIT-C Answer Date Recorded Frequency of Alcohol Consumption 2-3 times a christian french 02/16/2018 Average Number of Drinks Not [...] file Not on file Not on file Last Filed Vital Signs Vital Sign Reading Time Taken Comments Blood Pressure 120/70 02/20/2024 9:24 AM HEAD SETTER Pulse 56 02/20/2024 9:24 AM HEAD SETTER Temperature 36.6 C (97.8 F) 10/21/2022 11:29 AM CDT Respiratory Rate 16 08/07/2021 7:21 AM CDT Oxygen Saturation 97% 02/20/2024 9:24 AM HEAD SETTER Inhaled Oxygen Concentration - - Weight 102.5 kg (226 lb) 02/20/2024 9:24 AM HEAD SETTER Height 177.8 cm (5' 10 ) 02/20/2024 9:24 AM HEAD SETTER Body Mass Index 32.43 02/20/2024 9:24 AM HEAD SETTER Plan of Treatment Upcoming Encounters Date Type Department Care Team (Late st Contact Info) Description 08/20/2024 10:15 AM CDT [facility] [address] [place] [phone] Diane Beckett FNP [address] [place], [place] [address] [place] [address] Health Maintenance Due Date Last Done Comments ASCVD Statin 1962 Colorectal Cancer Screening Colonoscopy (10 Years) 1962 Annual Physical 1965 Pneumococcal Vaccine: Pediatrics (0 to 5 Years) and At-Risk Patients (6 to 64 Years) (1 of 2 - PCV) 02/22/1968 Hepatitis C 02/22/1980 Zoster Vaccines (1 of 2) 02/22/2012 RSV Immunization or 60+ Years (1 - Risk 60-74 years 1-dose series) 2022 COVID-19 Vaccine (4 - 2023-2 5 season) 2023 04/04/2021, 09/23/2020, 08/26/2020 Influenza Adult (#1) 2024 PHQ-2 (Physician [place]) 04/18/2024 DTaP, Tdap and Td Vaccines ( 3 - Td or Tdap) 07/08/2032 07/08/2022, 08/26/2016 Meningococcal B Vaccine Aged Out No l onger eligible based on patient's age to complete this topic Meningococcal Vaccine Aged Out No ashley austyn eligible based on patient's age to complete this topic RSV Immunizations Under 20 Months Aged Out No longer eligible b ased on patient's age to complete this topic Procedures Procedure Name Priority Date/Time Associated Diagnosis Comments XR CHEST PA+LAT Routine 07/02/2024 9:02 AM CDT Shortness of breath HCV RNA,PCR QUANT. 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 (HHS/HCC) Acquired hypothyroidism Screening for prostate cancer Need for hepatitis C screening test THYROXINE, FREE (FT4) Routine 07/02/2024 8:45 AM CDT Essential (primary) hypertension Hyperlipidemia Heterozygous for prothrombin [id number] mutation (HHS/HCC) Acquired hypothyroidism Screening for prostate cancer Need for hepatitis C screening test THYROID STIM HORMONE TSH Routine 07/02/2024 8:45 AM CDT Essential (primary) hypertension Hyperlipidemia Heterozygous for prothrombin [id number] mutation (HHS/HCC) Acquired hypothyroidism Screening for prostate cancer Need for hepatitis C screening test PROSTATE SPECIFIC ANTIGEN,SCREENING Routine 07/02/2024 8:45 AM CDT Essential (primary) hypertension Hyperlipidemia Heterozygous for prothrombin [id number] mutation (HHS/HCC) Acquired hypothyroidism Screening for prostate cancer Need for hepatitis C screening test LIPID PANEL Routine 07/02/2024 8:45 AM CDT Essential (primary) hypertension Hyperlipidemia Heterozygous for prothrombin [id number] mutation (HHS/HCC) Acquired hypothyroidism Screening for prostate cancer Need for hepatitis C screening test COMPREHENSIVE METABOLIC PANEL Routine 07/02/2024 8:45 AM CDT Essential (primary) hypertension Hyperlipidemia Heterozygous for prothrombin R02583M mutation (HHS/HCC) Acquired hypothyroidism Screening for prostate cancer Need for hepatitis C screening test CBC W/DIFF AUTOMATED Routine 07/02/2024 8:45 AM CDT Essential (primary) hypertension Hyperlipidemia Heterozygous for prothrombin [id number] mutation (HHS/HCC) Acquired hypothyroidism Screening for prostate cancer Need for hepatitis C screening test from Last 3 Months Results * XR CHEST PA+LAT (07/02/2024 9:02 AM CDT) Anatomical Region Laterality Modality Chest Radiographic Lisa ging 07/02/2024 9:03 AM CDT Impressions 07/02/2024 2:06 PM CDT IMPRESSION: No acute cardiopulmonary findings. The attending radiologist has reviewed the image(s) and agrees with the content of this report. Ordered By: NICOLA CHEEK Interpreted By: Albert Hawkins DO, 07/02/2024 9:03 AM Narrative 07/02/2024 2:06 PM CDT [facility] [address] [place] [address] Examination: XR CHEST PA+LAT Exam time: 07/02/2024 8:57 AM Clinical history: Shortness of breath with exertion for one to 2 months. Comparison: Chest radiograph 04/06/2021. Technique: Upright PA and lateral views of the chest. Findings: The heart is normal in size. Coronary stent is noted. There is normal distribution of the central pulmonary vasculature. No pneumothorax, pleural effusion, or new focal pulmonary consolidation. Multilevel thoracic spondylosis with bridging osteophytes. No acute osseous abnormality. Procedure Note Martín Chiang MD - 07/02/2024 [facility] [address] [place] [address] Examination: XR CHEST PA+LAT Exam time: 07/02/2024 8:57 AM Clinical history: Shortness of breath with exertion for one to 2 months. Comparison: Chest radiograph 04/06/2021. Technique: Upright PA and lateral views of the chest. Findings: The heart is normal in size. Coronary stent is noted. There is normaldistribution of the central pulmonary vasculature. No pneumothorax,pleural effusion, or new focal pulmonary consolidation. Multilevelthoracic spondylosis with bridging osteophytes. No acute osseousabnormality. IMPRESSION: No acute cardiopulmonary findings. The attending radiologist has reviewed the image(s) and agrees with thecontent of this report. Ordered By: NICOLA CHEEK Interpreted By: Albert Hawkins DO, 07/02/2024 9:03 AM Nicola Cheek [facility] Final Result * HCV RNA,PCR QUANT. (07/02/2024 8:45 AM CDT) HEPATITIS C RNA PCR QNT <15 IU/mL 07/05/2024 12:20 PM CDT [facility] DANIEL MORA Comment: HCV RNA Not Detected HEP C RNA PCR QNT LOG <1.18 log IU/mL 07/05/2024 12:20 PM CDT [facility] DANIEL MORA Comment: HCV RNA Not Detected Reference Range: Not Detected IU/mL Not Detected Log IU/mL For additional information please refer to http://education.[employer]/faq/PTX25w3 (This link is being provided for informational/ educational purposes only.) Test Performed by Candelaria B[facility] [employer] Aileen [facility], [address] [place], [place] Robert Connors M.D., Ph.D., Director of Laboratories , [facility] [id number] 07/02/2024 8:45 AM CDT Nicola Cheek NP LABORATORY Final Result [facility] [address] , [place] [phone] * FREE T3 (07/02/2024 8:45 AM CDT) FREE T3 3.1 2.18 - 3.98 PG/ML 07/02/2024 12:19 PM CDT [facility] 07/02/2024 8:45 AM CDT [facility] Final Result Performing Organization Address [facility] Co de Phone Number [facility] [address] [place] [address], [place] [phone] * PROSTATE SPECIFIC ANTIGEN,SCREENING (07/02/2024 8:45 AM CDT) PSA 1.53 <4.00 NG/ML 07/02/2024 9:24 AM CDT [facility] Comment: Test was performed using the Siemens method. Results obtained with other assay methods or kits cannot be used interchangeably with results obtained by the Siemens method. 07/02/2024 8:45 AM CDT Nicola Cheek NP LABORATORY Final Result [facility] [address] [place] [address], [place] [phone] * (ABNORMAL) COMPREHENSIVE METABOLIC PANEL (07/02/2024 8:45 AM [facility]) [facility] GLUCOSE 91 70 - 99 MG/DL 07/02/2024 10:02 AM [facility] BUN 18 7 - 18 MG/DL 07/02/2024 10:02 AM [facility] CREATININE S/P/B 1.14 0.7 - 1.3 MG/DL 07/02/2024 10:02 AM [facility] SODIUM S/P/B 137 136 - 145 MMOL/L 07/02/2024 10:02 AM [facility] POTASSIUM S/P/B 3.8 3.5 - 5.1 MMOL/L 07/02/2024 10:02 AM [facility] CHLORIDE S/P/B 102 100 - 108 MMOL/L 07/02/2024 10:02 AM [facility] CO2 29.8 21 - 32 MMOL/L 07/02/2024 10:02 AM [facility] CALCIUM S/P/B 9.3 8.5 - 10.1 MG/DL 07/02/2024 10:02 AM [facility] BILIRUBIN TOTAL S/P/B 0.7 0.2 - 1.2 MG/DL 07/02/2024 10:02 AM [facility] TOTAL PROTEIN S/P/B 7.2 6.4 - 8.2 G/DL 07/02/2024 10:02 AM [facility] ALBUMIN S/P/B 4.1 3.4 - 5.0 G/DL 07/02/2024 10:02 AM [facility] AST 19 15 - 37 U/L 07/02/2024 10:02 AM [facility] ALT 20 16 - 60 U/L 07/02/2024 10:02 AM CDT [facility] ALKALINE PHOSPHATASE S/P/B 50 50 - 136 U/L 07/02/2024 10:02 AM T [facility] ANION GAP 5.2 5 - 15 MMOL/L 07/02/2024 10:02 AM CDT [facility] BUN CREATININE RATIO 15.8 6 - 26 07/02/2024 10:02 AM T [facility] A/G RATIO 1.3 1.0 - 2.0 RATIO 07/02/2024 10:02 AM T [facility] GFR ESTIMATE 73(L) >90 ML/MIN/1.7 3 M2 07/02/2024 10:02 AM T [facility] Comment: NOTE: eGFR is not calculated for patients <18 years of age. This is an estimated GFR calculation using the new CKD EPI creatinine equation without race and so does not require a correction factor for race. This estimated GFR should not be used for calculating drug doses. 07/02/2024 8:45 AM CDT Nicola Cheek NP LABORATORY Final Result [facility] [address] [place] [address], * LIPID PANEL (07/02/2024 8:45 AM CDT) Pathologist [facility] CHOLESTEROL 121 <200.0 MG/DL 07/02/2024 10:02 AM CDT [facility] TRIGLYCERIDES 56 <150 MG/DL 07/02/2024 10:02 AM T [facility] HDL 44 >40.0 MG/DL 07/02/2024 10:02 AM T [facility] LDL (CALCULATED) 66 <100 MG/DL 07/03/19 25 10:02 AM CDT [facility] NON HDL CHOLESTEROL 77 <130 MG/DL 07/02 10:02 AM CDT [facility] CHOL/HDL RATIO 2.8 0.0 - 4.5 07/02/2024 10:02 AM CDT [facility] VLDL CALCULATION 11 5 - 55 MG/DL 07/02/2024 10:02 AM CDT [facility] LIPID INTERPRETATION 07/02/2024 10:02 AM CDT [facility] Comment: NIH CONCENSUS REPORT RECOMMENDATIONS: ADULT CHILD LOW RISK: CHOLESTEROL <200 <170 TRIGLYCERIDE <150 --- HDL >=60 --- LDL <100 <110 BORDERLINE: CHOLESTEROL 200-239 170-199 TRIGLYCERIDE 150-199 --- HDL 40-59 --- LDL 100-159 110-129 HIGH RISK: CHOLESTEROL >=240 >=200 TRIGLYCERIDE >=200 --- HDL <40 --- LDL >=160 >=130 07/02/2024 8:45 AM CDT Nicola Cheek NP LABORATORY Final Result [facility] [address] [place] [address], * (ABNORMAL) CBC W/DIFF AUTOMATED (07/02/2024 8:45 AM CDT) WBC 5.71 4.4 - 11.0 x10'3/uL 07/02/2024 8:57 AM CDT [facility] RBC 4.66 4.50 - 5.90 x10'6/uL 07/02/2024 8:57 AM CDT [facility] HGB 13.9(L) 14.0 - 17.5 G/DL 07/02/2024 8:57 AM CDT [facility] HCT 40.7(L) 41.5 - 50.4 % 07/02/2024 8:57 AM CDT [facility] MCV 87.3 80.0 - 96.0 FL 07/02/2024 8:57 AM CDT [facility] MCH 29.8 26.5 - 31.4 PG 07/02/2024 8:57 AM CDT [facility] MCHC 34.2 31.9 - 34.8 G/DL 07/02/2024 8:57 AM CDT [facility] RDW 12.6 12.3 - 14.3 % 07/02/2024 8:57 AM CDT [facility] PLT 192 151 - 353 x10'3/uL 07/02/2024 8:57 AM CDT [facility] MPV 9.8 9.7 - 11.9 FL 07/02/2024 8:57 AM CDT [facility] RBC MORPHOLOGY NORMAL 07/02/2024 8:57 AM CDT [facility] PLT MORPH. NORMAL 07/02/2024 8:57 AM CDT [facility] WBC MORPHOLOGY NORMAL 07/02/2024 8:57 AM CDT [facility] LYMPHOCYTES % 25.9 15.8 - 45.0 % 07/02/2024 8:57 AM CDT [facility] NEUTROPHILS % 55.0 42.1 - 71.9 % 07/02/2024 8:57 AM CDT [facility] MONOCYTES % 13.3(H) 5.7 - 12.5 % 07/02/2024 8:57 AM CDT [facility] EOSINOPHILS 4.9 0.0 - 5.6 % 07/02/2024 8:57 AM CDT [facility] BASOPHILS 0.7 0.0 - 1.3 % 07/02/2024 8:57 AM CDT [facility] ABS. NEUTROPHILS 3.14 1.40 - 6.00 x10'3/uL 07/02/2024 8:57 AM CDT [facility] IMMATURE GRANS % 0.2 0.0 - 0.5 % 07/02/2024 8:57 AM CDT [facility] ABS. LYMPHOCYTES 1.48 0.80 - 4.70 x10'3/uL 07/02/2024 8:57 AM CDT [facility] 07/02/2024 8:45 AM CDT us Nicola Cheek NP LABORATORY Final Result [facility] [address] [place] [address], [place] [phone] * THYROXINE, FREE (FT4) (07/02/2024 8:45 AM CDT) FREE T4 1.03 0.76 - 1.46 NG/DL 07/02/2024 2:34 PM CDT [facility] 07/02/2024 8:45 AM CDT us Nicola Cheek NP LABORATORY Final Result [facility] [address] [place] [address], [place] [phone] * (ABNORMAL) THYROID STIM HORMONE TSH (07/02/2024 8:45 AM CDT) TSH 4.293(H) 0.358 - 3.74 uIU/ML 07/02/2024 10:02 AM CDT [facility] Comment: HIGH DOSES OF BIOTIN MAY INTERFERE WITH THIS TEST RESULT. CORRELATION TO CLINICAL HISTORY AND PRESENTATION RECOMMENDED. 07/02/2024 8:45 AM CDT Nicola Cheek NP LABORATORY Final Result [facility] [address] [place] [address], [place] [phone] from Last 3 Months Insurance [employer] Advance Directives * Full Code (Latest Code Status on File) Date Activated Date Inactivated Comments 04/14/2021 7:05 PM 04/15/2021 6:24 PM * Full Code Date Activated Date Inactivated Comments 10/29/2019 9:59 AM 10/29/2019 2:59 PM Care Teams Core Fitter Relationship Specialty Start Date End Date Lakhwinder Romero MD [address] [place] [address] PCP - General FAMILY PRACTICE 01/24/18 Eldon Andrew MD [facility] [address] [place] [address] Savannah Needle Punch Operator CARDIOVASCULAR DISEASE 02/07/18
--- OUTSIDE RECORDS SUMMARY | 2024-07-05 13:03 | XMS_ITS | Encounter Summary ---
Author Organization [facility] Address [address] [place] [address] Care Team Providers Care Buying Agent Name Role Phone Lakhwinder Romero MD Primary Care Provider [phone] Eldon Andrew MD Unavailable [phone] Encounter Details Date Type Department Care Team (Late st Contact Info) Description 08/14/2019 Hospital Orders Only [facility] Digital Watch Assembl[place], [place] [address] Chencho Taylor MD Three [facility] [address] [place] [address] Social History Tobacco Use Types Packs/Day Years Used Date Smoking Tobacco: Never Smokeless Tobacco: Never Alcohol Use Standard Drinks/Week Comments Yes 0 (1 standard drink = 0.6 oz pur e alcohol) AUDIT-C Answer Date Recorded Frequency of Alcohol Consumption 2-3 times a christian k 02/16/2018 Average Number of Drinks Not [...] or suspected to have Coronavirus / COVID-19? Unable to assess 07/30/2019 4:10 PM CDT documented as of this encounter Plan of Treatment Upcoming Encounters Date Type Department Care Team (Late st Contact Info) Description 08/20/2024 10:15 AM CDT [facility] [address] [place] [address] Diane Beckett, RICARDO [address] [facility] [address] [place], [place] [id number] documented as of this encounter Visit Diagnoses Not on filedocumented in this encounter Care Teams Buying Agent Relationship Specialty Start Date End Date Lakhwinder Romero MD [address] [place] [address] PCP - General FAMILY PRACTICE 01/24/18 Eldon Andrew MD [facility]. [address] [place] [address] [place] Lpn Medical Assistant CARDIOVASCULAR DISEASE 02/07/18 documented as of this encounter
--- OUTSIDE RECORDS SUMMARY | 2024-07-05 13:03 | XMS_ITS | Encounter Summary ---
Author Organization [facility] Address [address] [place] [address] Care Team Providers Care Hepatology Physician Name Role Phone Lakhwinder Romero MD Primary Care Provider + [phone] Eldon Andrew MD Unavailable [phone] Encounter Details Date Type Department Care Team (Late st Contact Info) Description 08/04/2021 [employer] Message Enc [facility], [address] [address] [employer]s, [facility] Provider lab results Social History Tobacco Use Types Packs/Day Years [...] suspected to have Coronavirus/COVID-19? No / Unsure 08/07/2021 7:17 AM CDT documented as of this encounter Functional Status * RETIRED Are you deaf or do you have serious difficulty hearing Answer Date of Assessment Author Status No 04/15/2021 5:11 AM [employer] Activ e * RETIRED Are you blind or do you have serious difficulty seeing, even when wearing glasses? Answer Date of Assessment Author Status No 04/15/2021 5:11 AM [employer] Activ e * Do you have serious difficulty walking or climbing stairs? Answer Date of Assessment Author Status No 04/15/2021 5:11 AM Per Delaney RN Active * Do you have difficulty dressing or bathing? Answer Date of Assessment Author Status No 04/15/2021 5:11 AM Per Delaney R N Active * Because of a [...] Description 08/20/2024 10:15 AM CDT Office Visit [facility] [address] [place] [phone] Diane Beckett, RICARDO [address] [facility] [address] [place], [place] [id number] documented as of this encounter Visit Diagnoses Not on filedocumented in this encounter Care Teams Hepatology Physician Relationship Specialty Start Date End Date Lakhwinder Romero MD [address] [place] [address] PCP - General FAMILY PRACTICE 01/24/18 Eldon Andrew MD Three [facility]. [address] [place], [place] [id number] Chaya Pattern Marker CARDIOVASCULAR DISEASE 02/07/18 documented as of this encounter
--- OUTSIDE RECORDS SUMMARY | 2024-07-05 13:03 | XMS_ITS | Referral Summary ---
Author Organization [facility] [address] Address [address] [place] [address] Care Team Providers Care Fertilizing Machine Operator Name Role Phone Lakhwinder Romero MD Primary Care Provider Joselin Kam MD Unavailable Medhat Hsieh MD Unavailable [phone] Encounters Date Type Department Care Team Description 04/23/2024 Orders Only [facility] Movement Disorders [address] [place] [phone] Joselin Kam MD REM sleep behavior disorder (Primary Dx) from Last 3 Months Allergies No known active allergies Medications fenofibrate [...] evaluated by his PCP and subsequently a director child development center (records not available for review) and underwent [...] recommended he continue to follow-up with his director child development center though he will likely seek to establish [...] evaluated by his PCP and subsequently a director child development center (records not available for review) and underwent [...] Overview (07/29/2016): Essential hypertension Coronary arteriosclerosis in [place] artery 01/11 Overview (07/29/2016): Coronary artery disease involving [place] coronary artery of [place] heart with angina pectoris Hyperlipidemia LDL goal <70 01/12/2016 Overview (07/29/2016): Hyperlipidemia LDL goal <70 Immunizations Immunization Administration Dates Next Due Tdap 07/08/2022,08/26/2016 Social History Tobacco Use Types Packs/Day Years [...] on file Legal Sex Male 4:14 AM ARMED GUARD Gender Identity Not on file Sexual Orientation [...] 01/09/2024 3:02 PM CDT Plan of Treatment Not on file Insurance [facility] [employer] H[employer]/PPO Address: [address] [address] [place] [address] [place] ACC[place] CHO[place] BLUE ACC CHOICE [place] ANTHEM ACCESS CHOICE ANTHEM ACCESS CHOICE Advance Directives For more information, please contact: [phone] * Full Code (Latest Code Status on File) Date Activated Date Inactivated Comments 07/19/2019 9:40 PM 07/20/2019 10:32 PM Care Teams Fertilizing Machine Operator Relationship Specialty Start Date End Date Lakhwinder Romero MD PCP - General 07/16/16 Joselin Kam MD [address] [place] [address] Consulting Physician Neurology 11/11/21 Medhat Hsieh MD [address] [place] [address] [place] [address] Fellow Neurology 11/11/21
== END 2024-07-05 12:42 | disposition home or self-care (01) ==
PROVIDERS: PCP Family Medicine; Visit Provider Surgery
DX: D17.1 Benign lipomatous neoplasm of skin and subcutaneous tissue of trunk (principal); R22.2 Localized swelling, mass and lump, trunk
CPT/HCPCS: 76604

== ENCOUNTER 2024-07-19 08:24 | Outpatient (CLI) | payer BC, SELFPAY ==
--- NOTE | 2024-07-19 08:31 | ECG_ITS ---
Test Date: 2024-07-19 08:41:58 Measurements Intervals [place] Rate: 46 P: 34 PA: 210 QRS: 2 QRSD: 119 T: 1 QT: 428 QTc: 375 Interpretive Statements SINUS BRADYCARDIA WITH FIRST DEGREE AV BLOCK INTRAVENTRICULAR CONDUCTION DELAY LEFT VENTRICULAR HYPERTROPHY MINIMAL Q WAVES- HIGH LATERAL LEADS BORDERLINE T WAVE ABNORMALITY- INFERIOR LEADS BASELINE ARTIFACT- I, II, III, AVR, AVL, AVF, V4-V6 ABNORMAL ECG No previous ECG available for comparison Electronically Signed On 07-19-2024 08:56:49 CDT by Idris Graham D.O.
--- OUTSIDE RECORDS SUMMARY | 2024-07-19 08:34 | XMS_ITS | Referral Summary ---
Author Organization [facility] [place] [address] Address [address] [place] [address] Care Team Providers Care Commercial Sales Consultant Name Role Phone Lakhwinder Romero MD Primary Care Provider [phone] Joselin Kam MD Unavailable Medhat Hsieh MD Unavailable [phone]- [phone] Encounters Date Type Department Care Team Description 07/12/2024 10:00 AM CDT Office Visit [facility] [address] [place] [address] Medicine 7th [place] [id number] Leda Prieto NP Parkinson's disease, unspecified whether dyskinesia present, unspecified whether manifestations fluctuate (HCC) (Primary Dx) 04/23/2024 Orders Only [facility] [address] [place] [phone] Joselin Kam MD REM sleep behavior disorder (Primary Dx) from Last 3 Months Allergies No known active allergies Medications fenofibrate nanocrystallized (TRICOR,TRIGLIDE) 145 mg tablet take 1 tablet by oral route every day 90 3 01/12/20 16 Active atorvastatin (LIPITOR) 20 mg tablet Take 1 tablet (20 mg total) by mouth every evening Active clopidogreL (PLAVIX) 75 mg tablet Take 1 tablet (75 mg total) by mouth daily Active carbidopa-levodopa (SINEMET) 25-100 mg per tablet Take 4 tabs at 600, 3 tabs at 1200 and 4 tabs at 2000 990 tablet 3 04/16/20 24 Active Additional Information Patient taking differently: 4 tablet 2 times daily, 7 AM and 8 PM, Reported on 07/12/2024 amLODIPine (NORVASC) 2.5 mg tablet Take 1 tablet (2.5 mg total) by mouth daily 04/24/19 25 Active sildenafiL (VIAGRA) 50 mg tablet Take 1 tablet (50 mg total) by mouth daily as needed 02/20/20 24 Active aspirin (ASPIR-81) 81 mg tablet take 1 Tablet by oral route every day 0 0 01/12/20 16 025 Discontin ued(Thera py completed ) amLODIPine (NORVASC) 5 mg tablet Take 0.5 tablets (2.5 mg total) by mouth daily 10/30/19 22 025 Discontin ued(Thera py completed ) clonazePAM (KlonoPIN) 0.5 mg tablet Take 0.5 tablets (0.25 mg total) by mouth nightly 45 tablet 3 01/09/20 24 025 Discontin ued(Thera py completed ) Active Problems Problem Noted Date Diagnosed Date CAD (coronary artery disease) 10/17/2023 Hypertension, essential, benign 10/17/2023 PD (Parkinson's disease) 11/11/2021 Assessment & Plan (07/12/2024 10:36 AM CDT): Mr. 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 He had some early imbalance, REM behavior. He initially had an incomplete response to levodopa (until reaching higher doses) but his symptom complex was most consistent with idiopathic PD as he has no cerebellar or autonomic symptoms making MSA, PSP and CBD less likely. Historically he has also complained of some short term memory loss (though history of multiple concussions) but had no cognitive impairment on MOCA/MMSE in 2023. Since last visit he changed his levodopa from 07/19/4 to 4 tabs BID and has not appreciated any loss of benefit without wearing OFF. His MDS-UPDRS is actually better than at last visit (examined in peak ON state). He attributes this to improved sleep quality. He has also seen a reduction in RBD symptoms and feels overall better than at last visit such that he never trialed clonazepam 0.25 mg nightly for RBD and did not pursue the sleep study. He has some mild peak-dose dyskinesias (he does not appreciate the foot movements visualized today in clinic but rather occasional body swaying) that remain non-bothersome. For now we can continue his current regimen. He has some ongoing ankle and foot discomfort that he will monitor whether or not they respond to/correlate with levodopa dosing. I do suspect there may be some degree of OFF dystonia in his description of early evening foot tightness/discomfort that occurs before his evening levodopa dose. We can consider compressing his dosing regimen or adding back an afternoon dose if this becomes more bothersome and clear. In the future, should he have incomplete tremor benefit and good cognition should consider bilateral STN DBS. Recommendations (as shared with patient): For a free, self-paced Parkinson Disease speech therapy resource, please visit the [facility] [employer] website where you can access LIVE or pre-recorded speech therapy exercise courses. Please follow the following link: Online [facility] ([email or web address]) For now continue same carbidopa-levodopa 25/100 mg IR 4 tabs twice a day Can pay attention to foot cramping/ankle discomfort and if it relates at all to levodopa dose timing If dyskinesias become more bothersome, let our office know If dream enactment behavior worsens, please let our office know so we can start the clonazepam 0.25 mg nightly at bedtime Can call [phone] to schedule your visit with Sleep Medicine when ready Assessment & Plan (10/17/2023 10:36 AM CDT): [...] evaluated by his PCP and subsequently a venereal disease investigator (records not available for review) and underwent [...] recommended he continue to follow-up with his venereal disease investigator though he will likely seek to establish [...] evaluated by his PCP and subsequently a venereal disease investigator (records not available for review) and underwent [...] first try speech exercises through the PD [employer] project and information on how to access [...] Overview (07/29/2016): Essential hypertension Coronary arteriosclerosis in [place] artery 01/11 Overview (07/29/2016): Coronary artery disease involving [place] coronary artery of round [place] heart with angina pectoris Hyperlipidemia LDL goal [...] on file Legal Sex Male 4:14 AM 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86 07/12/2024 9:25 AM CDT Plan of Treatment Not on file Insurance [facility] CHOICE PLUS [facility] [place] [facility] BLUE ACC CHOICE OOS ANTHEM ACCESS CHOICE ANTHEM ACCESS CHOICE Advance Directives For more information, please contact: [phone] * Full Code (Latest Code Status on File) Date Activated Date Inactivated Comments 07/19/2019 9:40 PM 07/20/2019 10:32 PM Care Teams Commercial Sales Consultant Relationship Specialty Start Date End Date Lakhwinder Romero MD PCP - General 07/16/16 Joselin Kam MD [address] [place] [address] Consulting Physician Neurology 11/11/21 Medhat Hsieh MD [address] [address] Fellow Neurology 11/11/21
--- OUTSIDE RECORDS SUMMARY | 2024-07-19 08:34 | XMS_ITS | Encounter Summary ---
Author Organization [facility] Address [address] [place] [address] Care Team Providers Care Elevator Service Mechanic Name Role Phone Lakhwinder Romero MD Primary Care Provider [phone] Lakhwinder Romero MD Primary Care Provider [phone] Joselin Kam MD Unavailable Medhat Hsieh MD Unavailable [phone]- [phone] Encounter Details Date Type Department Care Team (Late st Contact Info) Description 06/07/2016 Orders Only [facility] ProviderBonnie MD [address] [place] [id number] Social History Tobacco Use Types Packs/Day Years Used Date Smoking Tobacco: Never Alcohol Use Standard Drinks/Week Comments Yes 0 (1 standard drink = 0.6 oz pur e alcohol) Sex and Gender Information Value Date Recorded Sex Assigned at Not on file Legal Sex Male 4:14 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
--- OUTSIDE RECORDS SUMMARY | 2024-07-19 08:34 | XMS_ITS | Encounter Summary ---
Author Organization [facility] Address [address] [place] [address] Care Team Providers Care Arch Cushion Press Operator Name Role Phone Lakhwinder Romero MD Primary Care Provider + [phone] Eldon Andrew MD Unavailable [phone] Encounter Details Date Type Department Care Team (Late st Contact Info) Description 08/04/2021 Agentek Message Enc [facility], [address] [address] [place], [facility] Provider lab results Social [...] Assessment Author Status No 04/15/2021 5:11 AM TALENT RECRUITER Activ e * RETIRED Are you blind or do you have serious difficulty seeing, even when wearing glasses? Answer Date of Assessment Author Status No 04/15/2021 5:11 AM TALENT RECRUITER Activ e * Do you have serious difficulty walking or climbing stairs? Answer Date of Assessment Author Status No 04/15/2021 5:11 AM Per Delaney R N Active * Do you have difficulty dressing or bathing? Answer Date of Assessment Author Status No 04/15/2021 5:11 AM TALENT RECRUITER Per Balderrama R Renan Active * Because of a physical, mental, [...] No 04/15/2021 5:11 AM Per Delaney R Renan Active documented in this encounter Plan of Treatment Upcoming Encounters Date Type Department Care Team (Late st Contact Info) Description 08/20/2024 10:15 AM CDT Office Visit [facility] [address] [place] [id number] Diane Beckett, RICARDO [address] [facility] [address] [place], [place] [id number] documented as of this encounter Visit Diagnoses Not on filedocumented in this encounter Care Teams Arch Cushion Press Operator Relationship Specialty Start Date End Date Lakhwinder Romero MD [address] [place] [address] PCP - General FAMILY PRACTICE 01/24/18 Eldon Andrew MD Three [facility]. [address] [place] [address] Chaya Application Analyst CARDIOVASCULAR DISEASE 02/07/18 documented as of this encounter
--- OUTSIDE RECORDS SUMMARY | 2024-07-19 08:34 | XMS_ITS | Clinical Summary ---
Author Organization [facility] Address Formerly [facility] [place] [address] Care Team Providers Care Industrial Electrician Name Role Phone Lakhwinder Romero MD Primary Care Provider [phone] Eldon Andrew MD Unavailable [phone] Allergies No known active allergies Medications aspirin [...] 04/14/2021 Assessment & Plan (04/20/2021 3:02 PM MANAGER CHINESE): Given his presentation of chest pain without elevated cardiac enzymes and no acute ischemic changes, I recommended that he undergo nuclear stress testing. I have personally reviewed his nuclear stress test and his echocardiogram and they are both within normal limits. He can be discharged safely from a cardiovascular perspective. Angina pectoris 04/14/2021 Coronary arteriosclerosis in [place] artery 01/11 Overview (04/14/2021): Coronary artery disease involving [place] coronary artery of [place] heart with angina pectoris Essential hypertension 01/12/2016 Overview (04/14/2021): Essential hypertension Hypertension, essential, benign Dyslipidemia CAD (coronary artery disease) Encounters Date Type Department Care Team Description 07/02/2024 8:37 AM CDT - 07/02/2024 11:59 PM CDT Hospital Encounter [facility] [address] [place] [address] Nicola Cheek NP Discharge Disposition: Home or Self Care (Routine Discharge) 07/02/2024 8:35 AM CDT - 07/02/2024 8:36 AM CDT Hospital Encounter [facility] [address] [place] [address] Nicola Cheek NP Discharge Disposition: Home or Self Care (Routine Discharge) 07/02/2024 Orders Only [facility] [address] [place] [address] Nicola Cheek NP 07/02/2024 Travel 06/28/2024 Telephone [facility], [address] [address] Eldon Andrew MD Surgical Clearance from Last [...] Comments Blood Pressure 120/70 02/20/2024 9:24 AM MANAGER CHINESE Pulse 56 02/20/2024 9:24 AM MANAGER CHINESE Temperature 36.6 C (97.8 F) 10/21/2022 11:29 AM CDT Respiratory Rate 16 08/07/2021 7:21 AM CDT Oxygen Saturation 97% 02/20/2024 9:24 AM MANAGER CHINESE Inhaled Oxygen Concentration - - Weight 102.5 kg (226 lb) 02/20/2024 9:24 AM MANAGER CHINESE Height 177.8 cm (5' 10 ) 02/20/2024 9:24 AM MANAGER CHINESE Body Mass Index 32.43 02/20/2024 9:24 AM MANAGER CHINESE Plan of Treatment Upcoming Encounters Date Type Department Care Team (Late st Contact Info) Description 08/20/2024 10:15 AM CDT [facility] [address] [place] [address] Diane Beckett FNP [address] [place] [address] Health Maintenance Due Date Last Done Comments [...] 2023-2 5 season) 2023 04/04/2021, 09/23/2020, 08/26/2020 PHQ-2 (Physician [place]) 04/18/2024 DTaP, Tdap and Td Vaccines ( [...] Essential (primary) hypertension Hyperlipidemia 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) Acquired hypothyroidism Screening for prostate cancer Need for hepatitis C screening test FREE T3 Routine 07/02/2024 8:45 AM CDT Essential (primary) hypertension Hyperlipidemia 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) Acquired hypothyroidism Screening for prostate cancer Need for hepatitis C screening test THYROXINE, FREE (FT4) Routine 07/02/2024 8:45 AM CDT Essential (primary) hypertension Hyperlipidemia 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) Acquired hypothyroidism Screening for prostate cancer Need for hepatitis C screening test THYROID STIM HORMONE TSH Routine 07/02/2024 8:45 AM CDT Essential (primary) hypertension Hyperlipidemia Heterozygous for prothrombin D75024L mutation (HHS/HCC) Acquired hypothyroidism Screening for prostate cancer Need for hepatitis C screening test PROSTATE SPECIFIC ANTIGEN,SCREENING Routine 07/02/2024 8:45 AM CDT Essential (primary) hypertension Hyperlipidemia Heterozygous for prothrombin [id number] mutation (HHS/HCC) Acquired hypothyroidism Screening for prostate cancer Need for hepatitis C screening test LIPID PANEL Routine 07/02/2024 8:45 AM CDT Essential (primary) hypertension Hyperlipidemia Heterozygous for prothrombin A69448G mutation (HHS/HCC) Acquired hypothyroidism Screening for prostate cancer Need for hepatitis C screening test COMPREHENSIVE METABOLIC PANEL Routine 07/02/2024 8:45 AM CDT Essential (primary) hypertension Hyperlipidemia Heterozygous for prothrombin [id number] mutation (HHS/HCC) Acquired hypothyroidism Screening for prostate cancer Need for hepatitis C screening test CBC W/DIFF AUTOMATED Routine 07/02/2024 8:45 AM CDT Essential (primary) hypertension Hyperlipidemia Heterozygous for prothrombin [id number] mutation (HHS/HCC) Acquired hypothyroidism Screening for prostate [...] 9:03 AM Narrative 07/02/2024 2:06 PM CDT [place] [id number] [place] [address] Examination: XR CHEST PA+LAT Exam time: 07/02/2024 [...] Procedure Note Martín Chiang MD - 07/02/2024 [facility] [address] [place] [address] Examination: XR CHEST PA+LAT Exam time: 07/02/2024 [...] Hawkins DO, 07/02/2024 9:03 AM Nicola Cheek AIRCRAFT GENERAL REPAIR MECHANIC GENERAL IMAGING Final Result * HCV RNA,PCR QUANT. (07/02/2024 8:45 AM CDT) HEPATITIS C RNA PCR QNT <15 IU/mL 07/05/2024 12:20 PM CDT [employer] DANIEL MORA Comment: HCV RNA Not Detected HEP C RNA PCR QNT LOG <1.18 log IU/mL 07/05/2024 12:20 PM CDT [employer] DANIEL MORA Comment: HCV RNA Not Detected Reference Range: Not Detected IU/mL Not Detected Log IU/mL For additional information please refer to http://education.[employer]/faq/ODC17y4 (This link is being provided for informational/ educational purposes only.) Test Performed by Candelaria Bingham, [employer] [facility], [address] [place] [address] Robert Connors M.D., Ph.D., Director of Laboratories , [facility] [id number] 07/02/2024 8:45 AM CDT Nicola Cheek LABORATORY Final Result [employer] [facility] [address] [place], [place] , [place] [phone] * FREE T3 (07/02/2024 8:45 AM CDT) FREE T3 3.1 2.18 - 3.98 PG/ML 07/02/2024 12:[address] [facility] 07/02/2024 8:45 AM CDT Nicola Cheek LABORATORY Final Result Performing Organization Address [facility] Co de Phone Number [facility] [address] [place] [address], [place] [phone] * PROSTATE SPECIFIC ANTIGEN,SCREENING (07/02/2024 8:45 AM CDT) PSA 1.53 <4.00 NG/ML 07/02/2024 9:24 AM CDT [facility] Comment: Test was performed using the Siemens method. Results obtained with other assay methods or kits cannot be used interchangeably with results obtained by the Siemens method. 07/02/2024 8:45 AM CDT [facility] LAB[facility] Final Result Performing Organization Address City/[facility]/ZIP Co de Phone Number [facility] [address] [place] [address], [place] [phone] * (ABNORMAL) COMPREHENSIVE METABOLIC PANEL (07/02/2024 8:45 AM CDT) [facility] GLUCOSE 91 70 - 99 MG/DL 07/02/2024 10:02 AM [facility] BUN 18 7 - 18 MG/DL 07/02/2024 10:02 AM [facility] CREATININE S/P/B 1.14 0.7 - 1.3 MG/DL 07/02/2024 10:02 AM [facility] SODIUM S/P/B 137 136 - 145 MMOL/L 07/02/2024 10:02 AM [facility] POTASSIUM S/P/B 3.8 3.5 - 5.1 MMOL/L 07/02/2024 10:02 AM [facility] CHLORIDE S/P/B 102 100 - 108 MMOL/L 07/02/2024 10:02 AM [facility] CO2 29.8 21 - 32 MMOL/L 07/02/2024 10:02 AM [facility] CALCIUM S/P/B 9.3 8.5 - 10.1 MG/DL 07/02/2024 10:02 AM [facility] BILIRUBIN TOTAL S/P/B 0.7 0.2 - 1.2 MG/DL 07/02/2024 10:02 AM [facility] TOTAL PROTEIN S/P/B 7.2 6.4 - 8.2 G/DL 07/02/2024 10:02 AM [facility] ALBUMIN S/P/B 4.1 3.4 - 5.0 G/DL 07/02/2024 10:02 AM [facility] AST 19 15 - 37 U/L 07/02/2024 10:02 AM [facility] ALT 20 16 - 60 U/L 07/02/2024 10:02 AM [facility] ALKALINE PHOSPHATASE S/P/B 50 50 - 136 U/L 07/02/2024 10:02 AM CDT [facility] ANION GAP 5.2 5 - 15 MMOL/L 07/02/2024 10:02 AM CDT [facility] BUN CREATININE RATIO 15.8 6 - 26 07/02/2024 10:02 AM T [facility] A/G RATIO 1.3 1.0 - 2.0 RATIO 07/02/2024 10:02 AM T [facility] GFR ESTIMATE 73(L) >90 ML/MIN/1.7 3 M2 07/02/2024 10:02 AM T [facility] Comment: NOTE: eGFR is not calculated for patients <18 years of age. This is an estimated GFR calculation using the new CKD EPI creatinine equation without race and so does not require a correction factor for race. This estimated GFR should not be used for calculating drug doses. 07/02/2024 8:45 AM CDT Nicola Cheek NP LABORATORY Final Result [facility] [address] [place] [address], * LIPID PANEL (07/02/2024 8:45 AM CDT) CHOLESTEROL 121 <200.0 MG/DL 07/02/2024 10:02 AM CDT [facility] TRIGLYCERIDES 56 <150 MG/DL 07/02/2024 10:02 AM CDT [facility] HDL 44 >40.0 MG/DL 07/02/2024 10:02 AM CDT [facility] LDL (CALCULATED) 66 <100 MG/DL 07/03/19 10:02 AM CDT [facility] NON HDL CHOLESTEROL 77 <130 MG/DL 07/02 10:02 AM CDT [facility] CHOL/HDL RATIO 2.8 0.0 - 4.5 07/02/2024 10:02 AM CDT [facility] VLDL CALCULATION 11 5 - 55 MG/DL 07/02/2024 10:02 AM CDT [facility] LIPID INTERPRETATION 07/02/2024 10:02 AM CDT [facility] Comment: NIH CONCENSUS REPORT RECOMMENDATIONS: ADULT CHILD LOW RISK: CHOLESTEROL <200 <170 TRIGLYCERIDE <150 --- HDL >=60 --- LDL <100 <110 BORDERLINE: CHOLESTEROL 200-239 170-199 TRIGLYCERIDE 150-199 --- HDL 40-59 --- LDL 100-159 110-129 HIGH RISK: CHOLESTEROL >=240 >=200 TRIGLYCERIDE >=200 --- HDL <40 --- LDL >=160 >=130 07/02/2024 8:45 AM CDT Nicola Cheek NP LABORATORY Final Result [facility] [address] [place] [address], * (ABNORMAL) CBC W/DIFF AUTOMATED (07/02/2024 8:45 AM CDT) WBC 5.71 4.4 - 11.0 x10'3/uL 07/02/2024 8:57 AM CDT [facility] RBC 4.66 4.50 - 5.90 x10'6/uL 07/02/2024 8:57 AM CDT [facility] HGB 13.9(L) 14.0 - 17.5 G/DL 07/02/2024 8:57 AM CDT [facility] HCT 40.7(L) 41.5 - 50.4 % 07/02/2024 8:57 AM CDT [facility] MCV 87.3 80.0 - 96.0 FL 07/02/2024 8:57 AM CDT [facility] MCH 29.8 26.5 - 31.4 PG 07/02/2024 8:57 AM CDT [facility] MCHC 34.2 31.9 - 34.8 G/DL 07/02/2024 8:57 AM CDT [facility] RDW 12.6 12.3 - 14.3 % 07/02/2024 8:57 AM CDT [facility] PLT 192 151 - 353 x10'3/uL 07/02/2024 8:57 AM CDT [facility] MPV 9.8 9.7 - 11.9 FL 07/02/2024 8:57 AM CDT [facility] RBC MORPHOLOGY NORMAL 07/02/2024 8:57 AM T [facility] PLT MORPH. NORMAL 07/02/2024 8:57 AM CDT [facility] WBC MORPHOLOGY NORMAL 07/02/2024 8:57 AM T [facility] LYMPHOCYTES % 25.9 15.8 - 45.0 % 07/02/2024 8:57 AM CDT [facility] NEUTROPHILS % 55.0 42.1 - 71.9 % 07/02/2024 8:57 AM CDT [facility] MONOCYTES % 13.3(H) 5.7 - 12.5 % 07/02/2024 8:57 AM CDT [facility] EOSINOPHILS 4.9 0.0 - 5.6 % 07/02/2024 8:57 AM CDT [facility] BASOPHILS 0.7 0.0 - 1.3 % 07/02/2024 8:57 AM CDT [facility] ABS. NEUTROPHILS 3.14 1.40 - 6.00 x10'3/uL 07/02/2024 8:57 AM CDT [facility] IMMATURE GRANS % 0.2 0.0 - 0.5 % 07/02/2024 8:57 AM CDT [facility] ABS. LYMPHOCYTES 1.48 0.80 - 4.70 x10'3/uL 07/02/2024 8:57 AM CDT [facility] 07/02/2024 8:45 AM CDT Nicola Cheek NP LABORATORY Final Result [facility] [address] [place] [address], [place] [phone] * THYROXINE, FREE (FT4) (07/02/2024 8:45 AM CDT) FREE T4 1.03 0.76 - 1.46 NG/DL 07/02/2024 2:34 PM CDT [facility] 07/02/2024 8:45 AM CDT Nicola Cheek NP LABORATORY Final Result [facility] [address] [place] [address], [place] [phone] * (ABNORMAL) THYROID STIM HORMONE TSH (07/02/2024 8:45 AM CDT) TSH 4.293(H) 0.358 - 3.74 uIU/ML 07/02/2024 10:02 AM CDT [facility] Comment: HIGH DOSES OF BIOTIN MAY INTERFERE WITH THIS TEST RESULT. CORRELATION TO CLINICAL HISTORY AND PRESENTATION RECOMMENDED. 07/02/2024 8:45 AM CDT Nicola Cheek NP LABORATORY Final Result [facility] [address] [place] [address], [place] [phone] from Last 3 Months Insurance [employer] Advance Directives * Full Code (Latest Code Status on File) Date Activated Date Inactivated Comments 04/14/2021 7:05 PM 04/15/2021 6:24 PM * Full Code Date Activated Date Inactivated Comments 10/29/2019 9:59 AM 10/29/2019 2:59 PM Care Teams Industrial Electrician Relationship Specialty Start Date End Date Lakhwinder Romero MD [address] [place] [address] PCP - General FAMILY PRACTICE 01/24/18 Eldon Andrew MD Three [facility]. [address] [address] Holladay Mailer CARDIOVASCULAR DISEASE 02/07/18
--- OUTSIDE RECORDS SUMMARY | 2024-07-19 08:34 | XMS_ITS | Encounter Summary ---
Author Organization [facility] Address [address] [place] [address] Care Team Providers Care Char Conveyor Tender Name Role Phone Lakhwinder Romero MD Primary Care Provider [phone] Eldon Andrew MD Unavailable [phone] Encounter Details Date Type Department Care Team (Late st Contact Info) Description 10/28/2019 Hospital Orders Only [facility] Telemetry [address] [place], [place] [address] Rogerio Milton MD Three [facility]. [facility] [address] [place], [place] [id number] Social History Tobacco Use Types Packs/Day Years [...] Description 08/20/2024 10:15 AM CDT [facility] [facility] [address] [place] [address] Diane Beckett, RICARDO 3 [facility] [address] [place], [place] [address] documented as of this encounter Visit Diagnoses Not on filedocumented in this encounter Care Teams Char Conveyor Tender Relationship Specialty Start Date End Date Lakhwinder Romero MD [address] [place] [address] PCP - General FAMILY PRACTICE 01/24/18 Eldon Andrew MD Three [facility]. [address] [place] [address] Lyon Handle Attacher CARDIOVASCULAR DISEASE 02/07/18 documented as of this encounter
--- OUTSIDE RECORDS SUMMARY | 2024-07-19 08:34 | XMS_ITS | Clinical Summary ---
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 Gender Identity Not on file Sexual Orientation [...] Blood specimen (specimen) 01/26/2019 us Maura Curiel MANAGER OF TRAINING AND DEVELOPMENT, RESEARCH PHYSICIAN CHEMISTRY ORDERABLES Fin al Result * COLONOSCOPY (08/20/2015) Lakhwinder Romero MD PROCEDURE/MINOR SURGICAL ORD ERABLES Final Result from Last 3 Months or Most Recently Relevant to Health Maintenance Insurance Care Teams Outpatient Coding Specialist Relationship Specialty Start Date End Date Lakhwinder Romero MD [address] [place] [address] PCP - General Family Medicine 08/27/15 Austin Silverio DO [place] [place] [address] Gastroenterology 08/27/15
--- OUTSIDE RECORDS SUMMARY | 2024-07-19 08:34 | XMS_ITS | Clinical Summary ---
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 [...] 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 though he will likely seek to establish [...] paced Parkinson Disease speech therapy resource [employer] exercise channel access instructions provided Follow-up as [...] 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 [...] first try speech exercises through the PD [employer] project and information on how to access [...] Overview (07/29/2016): Essential hypertension Coronary arteriosclerosis in [place] artery 01/11 Overview (07/29/2016): Coronary artery disease involving [place] coronary artery of [place] heart with angina pectoris Hyperlipidemia LDL goal <70 01/12/2016 Overview (07/29/2016): Hyperlipidemia LDL goal <70 Encounters Date Type Department Care Team Description 07/12/2024 10:00 AM CDT Office Visit [facility] [address] [place] [address] Medicine 7th [place] [address] Leda Prieto NP Parkinson's disease, unspecified whether dyskinesia present, unspecified whether manifestations fluctuate (HCC) (Primary Dx) 04/23/2024 Orders Only [facility] [address] [place] [phone] Joselin Kam MD REM sleep behavior disorder (Primary Dx) from Last 3 Months Immunizations Immunization Administration Dates Next Due Tdap 07/08/2022,08/26/2016 Surgical History Surgery Date Site/Laterality Comments CARPAL TUNNEL RELEASE 04/18/2003 - 04/17/2004 HEART SURGERY 04/18/2015 - 04/17/2016 2 [facility] Medical History Medical History Date Comments Hx Other Medical CAD, carpal patrick shayy syndrome, snoring and probable; Comments: MAF 01/13/2016 - Hypertension Parkinson disease (HCC) Family History Medical History Relation Name Comments No Known Problems Brother Hugo No Known Problems Daughter Dementia Father Ernesto Hypertension Father Ernesto Hypertension; Bone cancer Maternal Grandfather Peter Alzheimer's disease Mother Dominique Alzheime r's disease; [...] on file Legal Sex Male 4:14 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 Gender Identity Not on file Sexual [...] 07/12/2024 9:25 AM CDT Plan of Treatment Health Maintenance Due Date Last Done Comments Colon Cancer Screening-Colonoscopy 1962 Hepatitis C Screening 1960 Prostate Cancer Screening-PSA 1962 Hepatitis B Screening 02/22/1980 Regular Well Visit/Exam 18-64 02/22/1980 Pneumococcal vaccine <65 (1 of 2 - PCV) 1981 Zoster Vaccine (1 of 2) 02/22/2012 Covid-19 Vaccine (4 - ) 12/18/2023 04/04/2021, 09/23/2020, 08/26/2020 Influenza Vaccine (Season Ended) 2024 Depression Screening 01/08/2025 01/09/2024 DTaP/Tdap/Td Vaccine (3 - Td or Tdap) 07/08/2032, 08/26/2016 Insurance [facility] CHOICE PLUS [employer] [place] ANTH ACCESS CHOICE [employer] CHOICE OOS ANTHEM ACCESS CHOICE ANTHEM ACCESS CHOICE Advance Directives For more information, please contact: [phone] * Full Code (Latest Code Status on File) Date Activated Date Inactivated Comments 07/19/2019 9:40 PM 07/20/2019 10:32 PM Care Teams Pharmacy Innovation Assistant Relationship Specialty Start Date End Date Lakhwinder Romero MD PCP - General 07/16/16 Joselin Kam MD [address] [place] [address] Consulting Physician Neurology 11/11/21 Medhat Hsieh MD [address] [address] Fellow Neurology 11/11/21
--- OUTSIDE RECORDS SUMMARY | 2024-07-19 08:34 | XMS_ITS | Encounter Summary ---
Author Organization [facility] Address [address] [place] [address] Care Team Providers Care First Front Ventilator Name Role Phone Lakhwinder Romero MD Primary Care Provider [phone] Eldon Andrew MD Unavailable [phone] Encounter Details Date Type Department Care Team (Late st Contact Info) Description 08/31/2021 [employer] Message Enc [facility] Multispecialty Care - [address], [address] [place] [address] Active [employer], [facility] Provider Meds Social History Tobacco Use Types [...] Assessment Author Status No 04/15/2021 5:11 AM FLIGHT SURVEYOR Activ e * RETIRED Are you blind or do you have serious difficulty seeing, even when wearing glasses? Answer Date of Assessment Author Status No 04/15/2021 5:11 AM FLIGHT SURVEYOR Activ e * Do you have serious difficulty walking or climbing stairs? Answer Date of Assessment Author Status No 04/15/2021 5:11 AM FLIGHT SURVEYOR Per Balderrama R N Active * Do you have difficulty dressing or bathing? Answer Date of Assessment Author Status No 04/15/2021 5:11 AM FLIGHT SURVEYOR Per Balderrama R N Active * Because of a physical, mental, or emotional condition, do you have difficulty doing errands alone such as visiting a doctor's office or shopping? Answer Date of Assessment Author Status No 04/15/2021 5:11 AM FLIGHT SURVEYOR Per Balderrama R N Active documented as of this encounter Mental Status * Because of a physical, mental, or emotional condition, do you have serious difficulty concentrating, remembering, or making decisions? Answer Entry Date Author Status No 04/15/2021 5:11 AM FLIGHT SURVEYOR Per Balderrama R N Active documented in this encounter Plan of Treatment Upcoming Encounters Date Type Department Care Team (Late st Contact Info) Description 08/20/2024 10:15 AM CDT Office Visit [place] [facility] [address] [place] [address] Diane Beckett, RESTAURANT MAINTENANCE TECHNICIAN 3 [facility] [address] [place] [address] documented as of this encounter Visit Diagnoses Not on filedocumented in this encounter Care Teams First Front Ventilator Relationship Specialty Start Date End Date Lakhwinder Romero MD [address] [place] [address] PCP - General FAMILY PRACTICE 01/24/18 Eldon Andrew MD Three [facility]. [address] [place] [address] [place] Machine Gunner CARDIOVASCULAR DISEASE 02/07/18 documented as of this encounter
--- OUTSIDE RECORDS SUMMARY | 2024-07-19 08:34 | XMS_ITS | Encounter Summary ---
Author Organization [facility] Address [address] [place] [address] Care Team Providers Care Electrical Superintendent Name Role Phone Lakhwinder Romero MD Primary Care Provider [phone] Eldon Andrew MD Unavailable [phone] Encounter Details Date Type Department Care Team (Late st Contact Info) Description 08/14/2019 Hospital Orders Only [facility] Manager [address] [place], [place] [address] Chencho Taylor MD Three [facility]. [facility] [place] [address] [place] [address] Social History Tobacco Use Types [...] Description 08/20/2024 10:15 AM CDT [facility] [address] [place] [address] Diane Beckett, RICARDO 3 [facility] [address] [place], [place] [phone] documented as of this encounter Visit Diagnoses Not on filedocumented in this encounter Care Teams Electrical Superintendent Relationship Specialty Start Date End Date Lakhwinder Romero MD [address] [place] [address] PCP - General FAMILY PRACTICE 01/24/18 Eldon Andrew MD Three [facility]. [address] [place] [address] Barney Pick Pulling Machine Tender CARDIOVASCULAR DISEASE 02/07/18 documented as of this encounter
[2024-07-19 08:53] LABS: Basophils Percent Auto 0.8 % (0.2-1.2); Eosinophils Absolute Auto 0.2 K/mm3 (0-0.3); Eosinophils Percent Auto 4.8 % (0-4.4); Hematocrit 41.2 % (42.0-52.0); Hemoglobin 13.8 g/dL (14.0-18.0); Immature Granulocyte Absolute 0.01 K/mm3 (0.00-0.031); Immature Granulocyte Percent A 0.2 % (0-0.5); Lymphocytes Absolute Auto 1.35 K/mm3 (0.9-3.2); Lymphocytes Percent Auto 27.2 % (18.3-44.2); Mean Corpuscular HGB Conc 33.5 g/dl (32-36); Mean Corpuscular Hemoglobin 29.6 pg (26-34); Mean Corpuscular Volume 88.2 fl (80-100); Mean Platelet Volume 10.1 fl (7.4-10.4); Monocytes Absolute Auto 0.7 K/mm3 (0.1-0.6); Monocytes Percent Auto 14.3 % (2.6-8.5); Neutrophils Absolute Auto 2.6 K/mm3 (1.3-6.7); Neutrophils Percent Auto 52.7 % (45.5-73.1); Platelet Count Result 215 k/mm3 (150-375); Red Blood Count 4.67 M/mm3 (4.6-6.20); Red Cell Distribution Width 12.7 % (11.5-14.5)
== END 2024-07-19 08:25 | disposition home or self-care (01) ==
LOC: ANHSURGERY 08:29
PROVIDERS: PCP Family Medicine; Visit Provider Surgery
DX: Z01.818 Encounter for other preprocedural examination (principal); E78.5 Hyperlipidemia, unspecified; R22.2 Localized swelling, mass and lump, trunk; R94.31 Abnormal electrocardiogram [ECG] [EKG]; R00.1 Bradycardia, unspecified; I44.0 Atrioventricular block, first degree; I45.89 Other specified conduction disorders; I42.2 Other hypertrophic cardiomyopathy
CPT/HCPCS: 36415; 85025; 93005

== ENCOUNTER 2024-07-27 00:30 | Day surgery (SDC) | payer BC, SELFPAY ==
[2024-07-18 12:37] VITALS: BMI 32.8
--- NOTE | 2024-07-18 12:43 | PC.NURSE ---
Report to the Outpatient Waiting Room, entrance under the green pavilion located off [facility], at time _1130_ on date _[id number]_. Planned Procedure Time: _130pm_.? Time changes happen often and if your time is changed the preop area will call you the afternoon before. - You and your visitor will be asked to self-screen and do not enter if you have any COVID symptoms. Please call surgeon if you need to reschedule. - A mask is optional within the hospital at this time. Patients may have clear liquids (water, carbonated beverages, clear teas, apple juice) until 3 hours prior to surgery with a maximum of 20 ounces. - No food from midnight until time of surgery and no smoking, or chewing tobacco (or any form of nicotine). No chewing gum, candy or mints. Take only the following medications with a SIP of water on the morning of surgery: ___Amlodipine and Carbidopa/Levodopa____ DO NOT STOP ANY OF YOUR OTHER PRESCRIPTION MEDICATIONS PRIOR TO SURGERY EXCEPT THE FOLLOWING Hold all vitamins and supplements for 3 days per anesthesiologist. Medications to discontinue per physician ___Clopidogrel____ Date to take last oave___[id number]___ri instructed by Dr Hamilton._ Please no make-up, nail divehi, hairspray, perfume, deodorant, or body powder the day of surgery.? No jewelry (including any body piercings) or valuables the day of surgery, leave them at home.? Please take a shower or bath the night before, or the morning of, surgery with an antibacterial soap.? Wear comfortable, loose fitting clothing.? - Jewelry must be removed prior to entering the operating room.? Rings and piercings that are not removed may be cut off. - The hospital will not accept responsibility for valuables.? - Please leave all valuables, including medications, at home the day of surgery. If you are going home after surgery, a licensed parts delivery driver must drive you home.? - NO public transportation without another adult if you receive anesthesia. - We recommend that an adult stay with you for 24 hours following discharge. - We also recommend that you do not drive, make important decision, drink alcoholic beverages, or take any drugs that were not prescribed by your health care provider for at least 24 hours after your discharge time. Follow any additional instructions given to you from your surgeon. Telephone instructions given to __JR___and asked if any additional questions and then verbalized understanding. Patient advised to call surgeon office or pre surgery nurse liaison [phone] if any additional questions.
--- NOTE | 2024-07-26 17:13 | P.SS_ITS ---
Same Day Admit/Disch: HPI History of Present Illness Chief complaint: subcutaneous mass of left flank/back Narrative: Ernesto Castano Jr. is a 64 year old male who has had a soft tissue mass just lateral and posterior to his axilla for at least 3 years. This has been enlarging but is rarely uncomfortable. He was seen in the office and this seemed to be a large lipoma measuring 13 by 8.5 cm. Patient was sent for an ultrasound which also suggested this to be a large lipoma. He takes Plavix daily and this has been held for surgery. He is taken to the operating room today for excision of this large subcutaneous mass most likely a lipoma. [facility] Past Medical History Medical History Heart disease Surgical History Surgical History H/O carpal tunnel repair Family History Family History Sibling Heart disease Hypertension Grandparent Heart disease Social History Social History Smoking status: Never smoker Alcohol intake: current Do You Feel Safe in your Home?: Yes Lack of Transportation: No Lack of Food: Never True Current Housing: I Have Housing Concerned About Future Housing: No Difficulty Paying Gas/Electric Bills: No Difficulty Paying for Meds: No Currently Unemployed: No Education: High School Diploma/GED Difficulty w/ Childcare or Family Care: No Living arrangements: with family Spiritual care concerns: No Same Day Admit/Disch: Med Pre-admit Medications Home Medications ?Medication ?Instructions ?Recorded ?Confirmed ?Type amlodipine 2.5 mg tablet (Norvasc) 2.5 mg PO DAILY 06/25/24 07/27/24 History clopidogrel 75 mg tablet 75 mg PO DAILY 06/25/24 07/27/24 History carbidopa 25 mg-levodopa 100 mg 4 tablet PO QAM AND QPM 07/06/24 07/27/24 History tablet (Sinemet) atorvastatin 20 mg tablet 20 mg PO QPM 07/18/24 07/27/24 History fenofibrate nanocrystallized 145 145 mg PO DAILY 07/18/24 07/27/24 History mg tablet oxycodone-acetaminophen 5 mg-325 0.5 - 1 tablet PO Q4H PRN pain #10 07/27/24 Rx mg tablet (Percocet) tabs Review of Systems Review of Systems All systems reviewed & are unremarkable except as noted in HPI and below (HPI) Exam Const: General: comfortable, no acute distress, alert and awake HENMT: Head: normocephalic and atraumatic Mouth: Yes Normal oral and palatal mucosa present Eyes: Conjunctivae: conjunctivae normal Pupils: Equal, round and reactive pupils present EOM: EOMs intact bilaterally Neck: Neck: normal visual inspection, no lymphadenopathy and nontender Resp: Effort & Inspection: normal respiratory effort Auscultation: clear to auscultation bilaterally Cardio: Rate: regular rate Rhythm: regular rhythm Heart sounds: no gallops, no murmurs and no rubs GI: Inspection: non-distended GI Palp: Yes Soft to palpation, No Tenderness to palpation present (GI), No Hepatomegaly present and No Splenomegaly present Back/Spine/Pelvis: Back: mass (13 cm mass posterior to left axilla on flank/back) Other: Mass is rubbery, mobile, slightly firm. It is most consistent with a large lipoma. Skin: Lesions: no lesions Rashes: no rashes Neuro: General: no focal motor deficits and CN's II-XI intact bilaterally Cranial nerves: Yes Equal, round and reactive pupils present, Yes Bilaterally intact EOM present, Yes facial symmetry and Yes Midline tongue present Speech: normal speech Motor exam (neuro): 5/5 motor strength present throughout and Motor abnormalities not present Extrem: General: no clubbing, cyanosis or edema and edema Psych: Affect: normal affect Thought process: Normal thought process present Insight: Good insight present (Psych) DS: Summary Time Spent with Patient Time attestation: Total time spent providing and/or coordinating discharge services: DS: Admitting Diagnosis Discharge Date 07/27/2024 Admitting Diagnosis * Left upper flank and back subcutaneous mass-by ultrasound and exam, this is most likely a lipoma. Plan to proceed with excision under anesthesia as an outpatient. The procedure, risks, alternatives, benefits have been discussed with the patient. Potential complications have been discussed. All questions were answered, he understands and agrees to go ahead. 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 Hamilton as an outpatient. (2) Mass of chest wall, left: Code(s): R22.2 - Localized swelling, mass and lump, trunk Status: Chronic Assessment and Plan: Grossly a lipoma Discharge Plan Discharge Patient Disposition: Home Discharge Instructions: * No lifting over 15 lb with left arm for 7-10 days * Okay to wash over incision with soap and water when bathe or shower * No driving until Tuesday * No sports or vigorous activity for 1 week * Don't yank or jerk left arm--no rapid, forceful movements--for 2 weeks. * Stairs are okay * Try to ambulate for 10 minutes 2 or 3 times per day. Increase up to 30 minutes at a time as tolerated. * Call for severe pain, severe swelling, persistent drainage or bleeding, temp 101? or higher, other significant change in condition. * Prescription pain medication sent to pharmacy. Try to use Tylenol or ibuprofen for milder pain. Use the prescription only when necessary. Patient Language: Yemeni Stand Alone Forms: General Discharge Instructions Follow-up/Referrals: Maico Hamilton MD [Physician] - 2 Weeks Discharge Medications: New oxycodone-acetaminophen [Percocet] 5-325 mg tablet 0.5 - 1 tablet PO Q4H PRN (Reason: pain) Qty: 10 0RF Continued amlodipine [Norvasc] 2.5 mg tablet 2.5 mg PO DAILY carbidopa-levodopa [Sinemet] 25-100 mg tablet 4 tablet PO QAM AND QPM atorvastatin 20 mg tablet 20 mg PO QPM fenofibrate nanocrystallized 145 mg tablet 145 mg PO DAILY Held clopidogrel 75 mg tablet 75 mg PO DAILY Hold Instructions: Resume on 07/30/24.
[2024-07-27] VITALS (12 sets, daily range): BP systolic 133–161; BP diastolic 69–86; PULSE 40–71; RESP 14–18; TEMP 36.4; O2SAT 96–100
--- OUTSIDE RECORDS SUMMARY | 2024-07-27 00:32 | XMS_ITS | Clinical Summary ---
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 Gender Identity Not on file Sexual Orientation [...] Blood specimen (specimen) 01/26/2019 us Maura Curiel COLLATERAL SPECIALIST, AUTO TRANSMISSION MECHANIC CHEMISTRY ORDERABLES Fin al Result * COLONOSCOPY (08/20/2015) Lakhwinder Romero MD PROCEDURE/MINOR SURGICAL ORD ERABLES Final Result from Last 3 Months or Most Recently Relevant to Health Maintenance Insurance Care Teams Internal Medicine Nurse Relationship Specialty Start Date End Date Lakhwinder Romero MD [address] [place] [address] PCP - General Family Medicine 08/27/15 Austin Silverio DO Selwyn [address] [place] [address] Gastroenterology 08/27/15
--- OUTSIDE RECORDS SUMMARY | 2024-07-27 00:33 | XMS_ITS | Encounter Summary ---
Author Organization [facility] Address [address] [place] [address] Care Team Providers Care Preservative Filler Machine Operator Name Role Phone Lakhwinder Romero MD Primary Care Provider [phone] Eldon Andrew MD Unavailable Encounter Details Date Type Department Care Team (Late st Contact Info) Description 08/14/2019 Hospital Orders Only [facility] Housekeeping Staff [address] [place], [place] [address] Chencho Taylor MD Three [facility]. [facility] [address] [place] [address] Social History Tobacco Use Types [...] Description 08/20/2024 10:15 AM CDT [facility] [address] [place] [address] Diane Beckett, RICARDO 3 [facility] [address] [place], [place] [phone] documented as of this encounter Visit Diagnoses Not on filedocumented in this encounter Care Teams Preservative Filler Machine Operator Relationship Specialty Start Date End Date Lakhwinder Romero MD [address] [place] [address] PCP - General FAMILY PRACTICE 01/24/18 Eldon Andrew MD Three [facility]. [address] [place] [address] High View Rheostat Assembler CARDIOVASCULAR DISEASE 02/07/18 documented as of this encounter
--- OUTSIDE RECORDS SUMMARY | 2024-07-27 00:33 | XMS_ITS | Clinical Summary ---
Author Organization [facility] Address [facility] [place] [address] Care Team Providers Care Allergy Physician Name Role Phone Lakhwinder Romero MD Primary Care Provider [phone] Eldon Andrew MD Unavailable Allergies No known [...] 04/14/2021 Assessment & Plan (04/20/2021 3:02 PM EDUCATIONAL RECRUITER): Given his presentation of chest pain without elevated cardiac enzymes and no acute ischemic changes, I recommended that he undergo nuclear stress testing. I have personally reviewed his nuclear stress test and his echocardiogram and they are both within normal limits. He can be discharged safely from a cardiovascular perspective. Angina pectoris 04/14/2021 Coronary arteriosclerosis in [place] artery 01/11 Overview (04/14/2021): Coronary artery disease involving [place] coronary artery of [place] heart with angina pectoris Essential hypertension 01/12/2016 Overview (04/14/2021): Essential hypertension Hypertension, essential, benign Dyslipidemia CAD (coronary artery disease) Encounters Date Type Department Care Team Description 07/02/2024 8:37 AM CDT - 07/02/2024 11:59 PM CDT Hospital Encounter [facility] [address] [place] [address] Nicola Cheek NP Discharge Disposition: Home or Self Care (Routine Discharge) 07/02/2024 8:35 AM CDT - 07/02/2024 8:36 AM CDT Hospital Encounter [facility] [address] [place] [address] Nicola Cheek NP Discharge Disposition: Home or Self Care (Routine Discharge) 07/02/2024 Orders Only [facility] [address] [place] [address] Nicola Cheek NP 07/02/2024 Travel 06/28/2024 Telephone [facility], [address] [address] Eldon Andrew MD Surgical Clearance from Last [...] Comments Blood Pressure 120/70 02/20/2024 9:24 AM EDUCATIONAL RECRUITER Pulse 56 02/20/2024 9:24 AM EDUCATIONAL RECRUITER Temperature 36.6 C (97.8 F) 10/21/2022 11:29 AM CDT Respiratory Rate 16 08/07/2021 7:21 AM CDT Oxygen Saturation 97% 02/20/2024 9:24 AM EDUCATIONAL RECRUITER Inhaled Oxygen Concentration - - Weight 102.5 kg (226 lb) 02/20/2024 9:24 AM EDUCATIONAL RECRUITER Height 177.8 cm (5' 10 ) 02/20/2024 9:24 AM EDUCATIONAL RECRUITER Body Mass Index 32.43 02/20/2024 9:24 AM EDUCATIONAL RECRUITER Plan of Treatment Upcoming Encounters Date Type Department Care Team (Late st Contact Info) Description 08/20/2024 10:15 AM CDT [facility] [address] [place] [address] Diane Beckett FNP [address] [place] [address] Health Maintenance Due Date Last Done Comments [...] season) 2023 04/04/2021, 09/23/2020, 08/26/2020 PHQ-2 (Physician [place]) 04/18/2024 DTaP, Tdap and Td Vaccines ( [...] Essential (primary) hypertension Hyperlipidemia 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) Acquired hypothyroidism Screening for prostate cancer Need for hepatitis C screening test FREE T3 Routine 07/02/2024 8:45 AM CDT Essential (primary) hypertension Hyperlipidemia Heterozygous for prothrombin [id number] mutation (HHS/HCC) Acquired hypothyroidism Screening for prostate cancer Need for hepatitis C screening test THYROXINE, FREE (FT4) Routine 07/02/2024 8:45 AM CDT Essential (primary) hypertension Hyperlipidemia Heterozygous for prothrombin S03944O mutation (HHS/HCC) Acquired hypothyroidism Screening for prostate cancer Need for hepatitis C screening test THYROID STIM HORMONE TSH Routine 07/02/2024 8:45 AM CDT Essential (primary) hypertension Hyperlipidemia Heterozygous for prothrombin [id number] mutation (HHS/HCC) Acquired hypothyroidism Screening for prostate cancer Need for hepatitis C screening test PROSTATE SPECIFIC ANTIGEN,SCREENING Routine 07/02/2024 8:45 AM CDT Essential (primary) hypertension Hyperlipidemia Heterozygous for prothrombin [id number] mutation (HHS/HCC) Acquired hypothyroidism Screening for prostate cancer Need for hepatitis C screening test LIPID PANEL Routine 07/02/2024 8:45 AM CDT Essential (primary) hypertension Hyperlipidemia Heterozygous for prothrombin Z36189I mutation (HHS/HCC) Acquired hypothyroidism Screening for prostate cancer Need for hepatitis C screening test COMPREHENSIVE METABOLIC PANEL Routine 07/02/2024 8:45 AM CDT Essential (primary) hypertension Hyperlipidemia Heterozygous for prothrombin [id number] mutation (HHS/HCC) Acquired hypothyroidism Screening for prostate cancer Need for hepatitis C screening test CBC W/DIFF AUTOMATED Routine 07/02/2024 8:45 AM CDT Essential (primary) hypertension Hyperlipidemia Heterozygous for prothrombin H93748L mutation (HHS/HCC) Acquired hypothyroidism Screening for prostate [...] 9:03 AM Narrative 07/02/2024 2:06 PM CDT [place] [id number] [place] [address] Examination: XR CHEST PA+LAT Exam time: 07/02/2024 [...] Procedure Note Martín Chiang MD - 07/02/2024 [facility] [address] [place] [address] Examination: XR CHEST PA+LAT Exam time: 07/02/2024 [...] Hawkins DO, 07/02/2024 9:03 AM Nicola Cheek [employer] CH[employer]OOK[employer] MACHINE GENERAL IMAG[facility] Final Result * HCV RNA,PCR QUANT. (07/02/2024 8:45 AM CDT) HEPATITIS C RNA PCR QNT <15 IU/mL 07/05/2024 12:20 PM CDT [employer] DANIEL MORA Comment: HCV RNA Not Detected HEP C RNA PCR QNT LOG <1.18 log IU/mL 07/05/2024 12:20 PM CDT [employer] DANIEL MORA Comment: HCV RNA Not Detected Reference Range: Not Detected IU/mL Not Detected Log IU/mL For additional information please refer to http://education.[employer]/faq/FLO90k8 (This link is being provided for informational/ educational purposes only.) Test Performed by Candelaria Bingham, [employer] [facility], [address] [place] [address] Robert Connors M.D., Ph.D., Director of Laboratories , [facility] [id number] 07/02/2024 8:45 AM CDT Nicola Cheek LABORATORY Final Result [employer] [facility] [address] [place], [place] , [place] [phone] * FREE T3 (07/02/2024 8:45 AM CDT) FREE T3 3.1 2.18 - 3.98 PG/ML 07/02/2024 12:19 PM CDT [facility] 07/02/2024 8:45 AM CDT Nicola Cheek LABORATORY Final Result Performing Organization Address [facility] Co de Phone Number [facility] [address] [place] [address], [place] [phone] * PROSTATE SPECIFIC ANTIGEN,SCREENING (07/02/2024 8:45 AM CDT) PSA 1.53 <4.00 NG/ML 07/02/2024 9:24 AM CDT [facility] Comment: Test was performed using the Siemens method. Results obtained with other assay methods or kits cannot be used interchangeably with results obtained by the Siemens method. 07/02/2024 8:45 AM CDT [facility] Final Result Performing Organization Address City/[facility]/ZIP Co de Phone Number [facility] [address] [place] [address], [place] [phone] * (ABNORMAL) COMPREHENSIVE METABOLIC PANEL (07/02/2024 8:45 AM CDT) [facility] GLUCOSE 91 70 - 99 MG/DL 07/02/2024 10:[address] [facility] BUN 18 7 - 18 MG/DL 07/02/2024 10:[address] [facility] CREATININE S/P/B 1.14 0.7 - 1.3 MG/DL 07/02/2024 10:[address] [facility] SODIUM S/P/B 137 136 - 145 MMOL/L 07/02/2024 10:[address] [facility] POTASSIUM S/P/B 3.8 3.5 - 5.1 MMOL/L 07/02/2024 10:[address] [facility] CHLORIDE S/P/B 102 100 - 108 MMOL/L 07/02/2024 10:[address] [facility] CO2 29.8 21 - 32 MMOL/L 07/02/2024 10:[address] [facility] CALCIUM S/P/B 9.3 8.5 - 10.1 MG/DL 07/02/2024 10:[address] [facility] BILIRUBIN TOTAL S/P/B 0.7 0.2 - 1.2 MG/DL 07/02/2024 10:[address] [facility] TOTAL PROTEIN S/P/B 7.2 6.4 - 8.2 G/DL 07/02/2024 10:[address] [facility] ALBUMIN S/P/B 4.1 3.4 - 5.0 G/DL 07/02/2024 10:[address] [facility] AST 19 15 - 37 U/L 07/02/2024 10:[address] [facility] ALT 20 16 - 60 U/L 07/02/2024 10:[address] [facility] ALKALINE PHOSPHATASE S/P/B 50 50 - 136 U/L 07/02/2024 10:02 AM CDT [facility] ANION GAP 5.2 5 - 15 MMOL/L 07/02/2024 10:02 AM CDT [facility] BUN CREATININE RATIO 15.8 6 - 26 07/02/2024 10:02 AM T [facility] A/G RATIO 1.3 1.0 - 2.0 RATIO 07/02/2024 10:02 AM T [facility] GFR ESTIMATE 73(L) >90 ML/MIN/1.7 3 M2 07/02/2024 10:02 AM T [facility] Comment: NOTE: eGFR is not calculated for patients <18 years of age. This is an estimated GFR calculation using the new CKD EPI creatinine equation without race and so does not require a correction factor for race. This estimated GFR should not be used for calculating drug doses. 07/02/2024 8:45 AM CDT Nicola Cheek NP LABORATORY Final Result [facility] [address] [place] [address], * LIPID PANEL (07/02/2024 8:45 AM CDT) CHOLESTEROL 121 <200.0 MG/DL 07/02/2024 10:02 AM CDT [facility] TRIGLYCERIDES 56 <150 MG/DL 07/02/2024 10:02 AM CDT [facility] HDL 44 >40.0 MG/DL 07/02/2024 10:02 AM CDT [facility] LDL (CALCULATED) 66 <100 MG/DL 07/03/19 10:02 AM CDT [facility] NON HDL CHOLESTEROL 77 <130 MG/DL 07/02 10:02 AM CDT [facility] CHOL/HDL RATIO 2.8 0.0 - 4.5 07/02/2024 10:02 AM CDT [facility] VLDL CALCULATION 11 5 - 55 MG/DL 07/02/2024 10:02 AM CDT [facility] LIPID INTERPRETATION 07/02/2024 10:02 AM CDT [facility] Comment: NIH CONCENSUS REPORT RECOMMENDATIONS: ADULT CHILD LOW RISK: CHOLESTEROL <200 <170 TRIGLYCERIDE <150 --- HDL >=60 --- LDL <100 <110 BORDERLINE: CHOLESTEROL 200-239 170-199 TRIGLYCERIDE 150-199 --- HDL 40-59 --- LDL 100-159 110-129 HIGH RISK: CHOLESTEROL >=240 >=200 TRIGLYCERIDE >=200 --- HDL <40 --- LDL >=160 >=130 07/02/2024 8:45 AM CDT Nicola Cheek NP LABORATORY Final Result [facility] [address] [place] [address], * (ABNORMAL) CBC W/DIFF AUTOMATED (07/02/2024 8:45 AM CDT) WBC 5.71 4.4 - 11.0 x10'3/uL 07/02/2024 8:57 AM CDT [facility] RBC 4.66 4.50 - 5.90 x10'6/uL 07/02/2024 8:57 AM CDT [facility] HGB 13.9(L) 14.0 - 17.5 G/DL 07/02/2024 8:57 AM CDT [facility] HCT 40.7(L) 41.5 - 50.4 % 07/02/2024 8:57 AM CDT [facility] MCV 87.3 80.0 - 96.0 FL 07/02/2024 8:57 AM CDT [facility] MCH 29.8 26.5 - 31.4 PG 07/02/2024 8:57 AM CDT [facility] MCHC 34.2 31.9 - 34.8 G/DL 07/02/2024 8:57 AM CDT [facility] RDW 12.6 12.3 - 14.3 % 07/02/2024 8:57 AM CDT [facility] PLT 192 151 - 353 x10'3/uL 07/02/2024 8:57 AM CDT [facility] MPV 9.8 9.7 - 11.9 FL 07/02/2024 8:57 AM CDT [facility] RBC MORPHOLOGY NORMAL 07/02/2024 8:57 AM T [facility] PLT MORPH. NORMAL 07/02/2024 8:57 AM CDT [facility] WBC MORPHOLOGY NORMAL 07/02/2024 8:57 AM T [facility] LYMPHOCYTES % 25.9 15.8 - 45.0 % 07/02/2024 8:57 AM CDT [facility] NEUTROPHILS % 55.0 42.1 - 71.9 % 07/02/2024 8:57 AM CDT [facility] MONOCYTES % 13.3(H) 5.7 - 12.5 % 07/02/2024 8:57 AM CDT [facility] EOSINOPHILS 4.9 0.0 - 5.6 % 07/02/2024 8:57 AM CDT [facility] BASOPHILS 0.7 0.0 - 1.3 % 07/02/2024 8:57 AM CDT [facility] ABS. NEUTROPHILS 3.14 1.40 - 6.00 x10'3/uL 07/02/2024 8:57 AM CDT [facility] IMMATURE GRANS % 0.2 0.0 - 0.5 % 07/02/2024 8:57 AM CDT [facility] ABS. LYMPHOCYTES 1.48 0.80 - 4.70 x10'3/uL 07/02/2024 8:57 AM CDT [facility] 07/02/2024 8:45 AM CDT Nicola Cheek NP LABORATORY Final Result [facility] [address] [place] [address], [place] [phone] * THYROXINE, FREE (FT4) (07/02/2024 8:45 AM CDT) FREE T4 1.03 0.76 - 1.46 NG/DL 07/02/2024 2:[address] [facility] 07/02/2024 8:45 AM CDT Nicola Cheek NP LABORATORY Final Result [facility] [address] [place] [address], [place] [phone] * (ABNORMAL) THYROID STIM HORMONE TSH (07/02/2024 8:45 AM CDT) TSH 4.293(H) 0.358 - 3.74 uIU/ML 07/02/2024 10:02 AM CDT [facility] Comment: HIGH DOSES OF BIOTIN MAY INTERFERE WITH THIS TEST RESULT. CORRELATION TO CLINICAL HISTORY AND PRESENTATION RECOMMENDED. 07/02/2024 8:45 AM CDT Nicola Cheek NP LABORATORY Final Result [facility] [address] [place] [address], [place] [phone] from Last 3 Months Insurance [employer] Advance Directives * Full Code (Latest Code Status on File) Date Activated Date Inactivated Comments 04/14/2021 7:05 PM 04/15/2021 6:24 PM * Full Code Date Activated Date Inactivated Comments 10/29/2019 9:59 AM 10/29/2019 2:59 PM Care Teams Allergy Physician Relationship Specialty Start Date End Date Lakhwinder Romero MD [address] [place] [address] PCP - General FAMILY PRACTICE 01/24/18 Eldon Andrew MD Three [facility]. [address] [address] [place] Senior Client Advisor CARDIOVASCULAR DISEASE 02/07/18
--- OUTSIDE RECORDS SUMMARY | 2024-07-27 00:33 | XMS_ITS | Encounter Summary ---
Author Organization [facility] Address [address] [place] [address] Care Team Providers Care Superintendent Compressor Stations Name Role Phone Lakhwinder Romero MD Primary Care Provider [phone] Eldon Andrew MD Unavailable [phone] Encounter Details Date Type Department Care Team (Late st Contact Info) Description 10/28/2019 Hospital Orders Only [facility] Telemetry [address] [place], [place] [address] Rogerio Milton MD Three [facility]. [facility] [address] [place], [place] [id number] Social History Tobacco Use Types Packs/Day Years [...] Description 08/20/2024 10:15 AM CDT Office [facility] [address] [place] [address] Diane Beckett, RICARDO 3 [facility] [address] [place], [place] [id number] documented as of this encounter Visit Diagnoses Not on filedocumented in this encounter Care Teams Superintendent Compressor Stations Relationship Specialty Start Date End Date Lakhwinder Romero MD [address] [place] [address] PCP - General FAMILY PRACTICE 01/24/18 Eldon Andrew MD Three [facility]. [address] [place] [address] [place] Fretted Instrument Maker Hand CARDIOVASCULAR DISEASE 02/07/18 documented as of this encounter
--- OUTSIDE RECORDS SUMMARY | 2024-07-27 00:33 | XMS_ITS | Clinical Summary ---
Author Organization [facility] [address] Address [address] [place] [address] Care Team Providers Care Scale Technician Name Role Phone Lakhwinder Romero MD Primary Care Provider [phone] Joselin Kam MD Unavailable Medhat Hsieh MD Unavailable [phone] Allergies No known active allergies Medications fenofibrate [...] 0.25 mg nightly at bedtime Can call [phone] to schedule your visit with Sleep Medicine [...] evaluated by his PCP and subsequently a pharmacy services representative (records not available for review) and underwent [...] recommended he continue to follow-up with his pharmacy services representative though he will likely seek to establish [...] paced Parkinson Disease speech therapy resource APDA YouTPacket Digital exercise channel access instructions provided Follow-up as [...] evaluated by his PCP and subsequently a pharmacy services representative (records not available for review) and underwent [...] first try speech exercises through the [employer] project and information on how to access [...] Overview (07/29/2016): Essential hypertension Coronary arteriosclerosis in [place] artery 01/11 Overview (07/29/2016): Coronary artery disease involving [place] coronary artery of [place] heart with angina pectoris Hyperlipidemia LDL goal <70 01/12/2016 Overview (07/29/2016): Hyperlipidemia LDL goal <70 Encounters Date Type Department Care Team Description 07/12/2024 10:00 AM CDT Office Visit 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 Gender Identity Not on file Sexual Orientation [...] Vaccine (1 of 2) 02/22/2012 Covid-19 Vaccine ( - 2023- season) 2023 04/04/2021, 09/23/2020, 08/26/2020 Influenza Vaccine (Season Ended) 2024 Depression Screening 01/08/2025 01/09/2024 DTaP/Tdap/Td Vaccine (3 - Td or Tdap) 07/08/2032, 08/26/2016 Insurance [facility] CHOICE PLUS BLUE ACCESS [place] ANTHEM ACCESS CHOICE BLUE [facility] CHOICE OOS ANTHZimplistic ACCESS CHOICE Osurv ACCESS CHOICE Advance Directives For more information, please contact: [phone] * Full Code (Latest Code Status on File) Date Activated Date Inactivated Comments 07/19/2019 9:40 PM 07/20/2019 10:32 PM Care Teams Scale Technician Relationship Specialty Start Date End Date Lakhwinder Romero MD PCP - General 07/16/16 Joselin Kam MD [address] [place] [address] Consulting Physician Neurology 11/11/21 Medhat Hsieh MD [address] [place] [id number] Fellow Neurology 11/11/21
--- OUTSIDE RECORDS SUMMARY | 2024-07-27 00:33 | XMS_ITS | Encounter Summary ---
Author Organization [facility] Address [address] [facility] [address] [place] [address] Care Team Providers Care Disability Insurance Hearing Officer Name Role Phone Lakhwinder Romero MD Primary Care Provider [phone] Lakhwinder Romero MD Primary Care Provider [phone] Joselin Kam MD Unavailable Medhat Hsieh MD Unavailable [phone] Encounter Details Date Type Department Care Team (Late st Contact Info) Description 06/07/2016 Orders Only [facility] ProviderBonnie MD [address] [place] [address] Social History Tobacco Use Types Packs/Day Years Used Date Smoking Tobacco: Never Alcohol Use Standard Drinks/Week Comments Yes 0 (1 standard drink = 0.6 oz pur e alcohol) Sex and Gender Information Value Date Recorded Sex Assigned at Not on file 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
--- OUTSIDE RECORDS SUMMARY | 2024-07-27 00:33 | XMS_ITS | Encounter Summary ---
Author Organization [facility] Address [address] [place] [address] Care Team Providers Care Heavy Media Operator Name Role Phone Lakhwinder Romero MD Primary Care Provider [phone] Eldon Andrew MD Unavailable [phone] Encounter Details Date Type Department Care Team (Late st Contact Info) Description 08/04/2021 MD On-Line Message Enc [facility], [address] [address] rag & bone, [facility] Provider lab results Social History Tobacco Use [...] Assessment Author Status No 04/15/2021 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 Answer Date of Assessment Author Status No 04/15/2021 5:11 AM HEAD GRINDER Activ e * Do you have serious difficulty walking or climbing stairs? Answer Date of Assessment Author Status No 04/15/2021 5:11 AM Per Delaney R N Active * Do you have difficulty dressing or bathing? Answer Date of Assessment Author Status No 04/15/2021 5:11 AM HEAD GRINDER Per Balderrama R Renan Active * Because [...] Description 08/20/2024 10:15 AM CDT Office Visit [facility] [address] [place] [address] Diane Beckett, RICARDO 3 [facility] [address] [place], [place] [id number] documented as of this encounter Visit Diagnoses Not on filedocumented in this encounter Care Teams Heavy Media Operator Relationship Specialty Start Date End Date Lakhwinder Romero MD [address] [place] [address] PCP - General FAMILY PRACTICE 01/24/18 Eldon Andrew MD Three [facility]. [address] [place] [address] Chaya Drum Builder CARDIOVASCULAR DISEASE 02/07/18 documented as of this encounter
--- OUTSIDE RECORDS SUMMARY | 2024-07-27 00:33 | XMS_ITS | Referral Summary ---
Author Organization [facility] [address] Address [address] [place] [address] Care Team Providers Care Workforce Development Program Director Name Role Phone Lakhwinder Romero MD Primary Care Provider [phone] Joselin Kam MD Unavailable Medhat Hsieh MD Unavailable [phone] Encounters Date Type Department Care Team Description 07/12/2024 10:00 AM CDT Office Visit [facility] Movement Disorders [address] [facility] 7th [place] [address] Leda Prieto NP Parkinson's disease, unspecified whether dyskinesia present, unspecified whether manifestations fluctuate (HCC) (Primary Dx) from Last 3 Months Allergies [...] last visit he changed his levodopa from to 4 tabs BID and has not [...] 0.25 mg nightly at bedtime Can call [phone] to schedule your visit with Sleep Medicine [...] 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 (records not available for review) and underwent [...] recommended he continue to follow-up with his otr van cdl truck driver though he will likely seek to establish [...] 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 (records not available for review) and underwent [...] to first try speech exercises through the [employer] and information on how to access was [...] Overview (07/29/2016): Essential hypertension Coronary arteriosclerosis in [place] artery 01/11 Overview (07/29/2016): Coronary artery disease involving [place] coronary artery of [place] heart with angina pectoris Hyperlipidemia LDL goal [...] on file 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 Gender Identity Not on file Sexual Orientation [...] Plan of Treatment Not on file Insurance [facility] CHOICE PLUS BLUE [facility] [place] ANTH ACCESS CHOICE BLUE [facility] CHOICE OOS ANTHEM ACCESS CHOICE ANTHEM ACCESS CHOICE Advance Directives For more information, please contact: [phone] * Full Code (Latest Code Status on File) Date Activated Date Inactivated Comments 07/19/2019 9:40 PM 07/20/2019 10:32 PM Care Teams Workforce Development Program Director Relationship Specialty Start Date End Date Lakhwinder Romero MD PCP - General 07/16/16 Joselin Kam MD [address] [facility] [address] [place] [address] Consulting Physician Neurology 11/11/21 Medhat Hsieh MD [address] [address] Fellow Neurology 11/11/21
--- OUTSIDE RECORDS SUMMARY | 2024-07-27 00:33 | XMS_ITS | Encounter Summary ---
Author Organization [facility] Address [address] [place] [address] Care Team Providers Care Triage Clinician Name Role Phone Lakhwinder Romero MD Primary Care Provider [phone] Eldon Andrew MD Unavailable [phone] Encounter Details Date Type Department Care Team (Late st Contact Info) Description 08/31/2021 AURSOS Message Enc [facility] - [address], [address] [place] [address] [facility] Provider Meds Social History Tobacco Use Types Packs/Day Years Used Date Smoking Tobacco: Never Smokeless Tobacco: Never Alcohol Use Standard Drinks/Week Comments Yes 0 (1 standard drink = 0.6 oz pur e alcohol) AUDIT-C Answer Date Recorded Frequency of Alcohol Consumption 2-3 times a christina manolo 02/16/2018 Average Number of Drinks Not [...] Assessment Author Status No 04/15/2021 5:11 AM HAND RUG CLEANER Activ e * RETIRED Are you blind or do you have serious difficulty seeing, even when wearing glasses? Answer Date of Assessment Author Status No 04/15/2021 5:11 AM HAND RUG CLEANER Activ e * Do you have serious difficulty walking or climbing stairs? Answer Date of Assessment Author Status No 04/15/2021 5:11 AM HAND RUG CLEANER Pre Balderrama R N Active * Do you have difficulty dressing or bathing? Answer Date of Assessment Author Status No 04/15/2021 5:11 AM HAND RUG CLEANER Per Balderrama R N Active * Because of a physical, mental, or emotional condition, do you have difficulty doing errands alone such as visiting a doctor's office or shopping? Answer Date of Assessment Author Status No 04/15/2021 5:11 AM HAND RUG CLEANER Per Balderrama R N Active documented as of this encounter Mental Status * Because of a physical, mental, or emotional condition, do you have serious difficulty concentrating, remembering, or making decisions? Answer Entry Date Author Status No 04/15/2021 5:11 AM HAND RUG CLEANER Per Balderrama R N Active documented in this encounter Plan of Treatment Upcoming Encounters Date Type Department Care Team (Late st Contact Info) Description 08/20/2024 10:15 AM CDT Office Visit [facility] [address] [place] [address] Diane Beckett, UNDERWRITING OPERATIONS MANAGER 3 [facility] [address] [place] [address] documented as of this encounter Visit Diagnoses Not on filedocumented in this encounter Care Teams Triage Clinician Relationship Specialty Start Date End Date Lakhwinder Romero MD [address] [place] [address] PCP - General FAMILY PRACTICE 01/24/18 Eldon Andrew MD Three [facility]. [address] [place] [address] [employer] Teacher CARDIOVASCULAR DISEASE 02/07/18 documented as of this encounter
--- NOTE | 2024-07-27 09:26 | WPDANESEPPF ---
Anes - Initial Pre Proc Eval Procedure: Operation Date: 07/27/24 13:30 Proposed Procedures p Excision of Left Back Subcutaneous Mass - Maico Hamilton MD Date/Time: 07/27/24 09:26 Surgeon: Maico Hamilton MD Pre Op Diagnosis: subcutaneous mass of left flank/back Patient Data Age: 64 Gender: M Height: 1.78 m Weight: 103.1 kg Last Vital Signs Temp 36.4 C 07/27/24 09:10 Pulse 52 L 07/27/24 09:10 Resp 18 07/27/24 09:10 BP 139/86 07/27/24 09:10 Pulse Ox 98 07/27/24 09:10 O2 Del Method Room Air 07/27/24 09:10 Allergies Allergy/AdvReac Type Severity Reaction Status Date / Time No Known Allergies Allergy Verified 07/18/24 12:34 Home Medications ?Medication ?Instructions ?Recorded ?Confirmed ?Type amlodipine 2.5 mg tablet (Norvasc) 2.5 mg PO DAILY 06/25/24 07/18/24 History clopidogrel 75 mg tablet 75 mg PO DAILY 06/25/24 07/18/24 History carbidopa 25 mg-levodopa 100 mg 4 tablet PO QAM AND QPM 07/06/24 07/18/24 History tablet (Sinemet) atorvastatin 20 mg tablet 20 mg PO QPM 07/18/24 07/18/24 History fenofibrate nanocrystallized 145 145 mg PO DAILY 07/18/24 07/18/24 History mg tablet Patient hx anesthesia problems: post op nausea/vomiting Family hx anesthesia problems: none Results Review: All pre-operative results and documents have been reviewed as part of the pre-operative evaluation. [facility] Past Medical History Medical History Heart disease Surgical History Surgical History H/O carpal tunnel repair Family History Family History Sibling Heart disease Hypertension Grandparent Heart disease Social History Social History Smoking status: Never smoker Alcohol intake: current Do You Feel Safe in your Home?: Yes Lack of Transportation: No Lack of Food: Never True Current Housing: I Have Housing Concerned About Future Housing: No Difficulty Paying Gas/Electric Bills: No Difficulty Paying for Meds: No Currently Unemployed: No Education: High School Diploma/GED Difficulty w/ Childcare or Family Care: No Living arrangements: with family Spiritual care concerns: No Anes - Eval Final PreProcedure Day of Procedure 07/27/24 09:26 Patient weight: obese Heart: regular rate and rhythm Lungs: decreased breath sounds Airway: Mallampati scale class II Neurological: alert and oriented Last oral intake: >/= 8 hours ASA classification: III Emergent: no Anesthetic plan: proceed Anesthesia type and monitoring: general LMA and standard monitoring Results Review: All pre-operative results and documents have been reviewed as part of the pre-operative evaluation. Informed Consent: The patient's anesthetic plan and its attendant risks and benefits were discussed with the patient/family/POA. Questions were solicited and answers provided to the satisfaction of the patient/family/POA.
[2024-07-27] MEDS: LACTATED RINGERS 1,000 ML 30 ML IV CONT ×2 (09:35→11:30)
--- NOTE | 2024-07-27 10:02 | WPDHPUPDATE1 ---
History and Physical Update Update Date/Time: 07/27/24 10:02 History and Physical has been reviewed, including an updated exam of the patient. There are NO changes in the patient's condition. Risks, benefits, and alternatives have been discussed and questions answered. Patient agrees to proceed with procedure.
[2024-07-27] MEDS: BUPIVACAINE/EPINEPHRINE 0.5% 50 ML VIAL 30 ML INFILTRATE (10:11)
[2024-07-27] MEDS: ceFAZolin 2 GM/D5W 50 ML 2 GM/50 ML BAG IVPB (10:11)
[2024-07-27] MEDS: ONDANSETRON INJ 4 MG/2 ML VIAL IV PUSH (13:03)
[2024-07-27] MEDS: diphenhydrAMINE HCl INJ 50 MG/ML VIAL 25 MG IV PUSH (14:30)
--- NOTE | 2024-07-27 14:46 | SUR.PHASEII ---
Patient is all dressed and ready to go. RN gave 25mg of Benadryl for nausea and has patient hooked up to pulse ox only.
--- NOTE | 2024-07-27 16:16 | P.OP_ITS ---
Procedure Note - Detailed Date of Procedure 07/27/24 Pre-op Diagnosis subcutaneous mass of left flank/back Post-op Diagnosis Other (Intramuscular mass of the upper left flank) Procedure Performed Excision 9 cm intramuscular mass of the left lateral chest with no margin Surgeon Maico Hamilton MD Hot Punch Press Operator Annette DALE Anesthesia General (LMA) and Local Indications Patient now has a large and enlarging subcutaneous mass just caudal and posterior to his left axilla. Exam him and ultrasound suggests this to be a lipoma. He is taken to surgery now for excision. Findings Large lipoma, 9 cm in greatest dimension Description of Procedure Patient was checked in the preoperative holding area. An outline of the mass was made with the patient in right lateral decubitus position. A potential line excision was drawn on the skin. Patient was then taken to surgery and induced into general anesthesia. He was then turned to right lateral decubitus position with the left arm bent at the shoulder and elbow and supported fully. The mass was able to be palpated. Prep and drape of the area was then carried out. A surgeon 1st wilton an elliptical proposed incision centering on the previously drawn transversely oriented line. An ellipse of skin was planned to be removed as the skin was quite stretched by the mass and the wound would come together with less chance for seroma or subcutaneous pockets developing. Local was then infiltrated in the planned elliptical excision of skin. Additional local was infiltrated near the base of the lesion circumferentially. The ellipse of the skin was then incised and the dissection was carried down through into the subcutaneous. We then started on the caudal aspect of the lesion. The lesion was carefully dissected free from the overlying scab cutaneous with the cautery. Fortunately, the edges of the lesion were circumscribed and it was pretty apparent the borders of the lesion. This dissection was continued until we were down and the lesion was actually deepening into the latissimus and trapezius musculature. I then went back to the other side and created a similar dissection using the cautery. After this was completed, the only remaining attachments were to the intramuscular portion of the lipoma. This area was carefully excised taking care not to cause bleeding or injury into the flank musculature. Once the mass was fully excised, it was measured. It measured 9 x 7 x 5.5 cm. The wound was then made hemostatic with the cautery. Mass was sent off to pathology in formalin. Donny's fascia was closed with interrupted 3-0 Vicryl suture. Subcuticular interrupted 4-0 Vicryl skin stitches were then placed. Finally a running 4-0 Monocryl skin suture was placed. The wound was dressed with Exofin surgical adhesive. Patient was then returned to a supine position, awakened and extubated. He transferred to recovery in good condition. Sponge and needle counts were correct x2. Estimated Blood Loss -5 Drains No Packing No Pathology Yes (Large intramuscular subcutaneous mass, grossly consistent with a lipoma) Complications None Condition Stable Disposition PACU [facility] Billing Surgery - Charge Forward: Surgery Billing (Excision 9 cm intramuscular mass of the left lateral chest with no margin)
== END 2024-07-27 15:10 | disposition home or self-care (01) ==
PROVIDERS: PCP Family Medicine; Visit Provider Surgery
PROC: (CPT 21931; principal; 2024-07-27 13:30)
DX: D17.1 Benign lipomatous neoplasm of skin and subcutaneous tissue of trunk (principal); G89.18 Other acute postprocedural pain; I11.9 Hypertensive heart disease without heart failure; G20.A1 Parkinson's disease without dyskinesia, without mention of fluctuations; I25.10 Atherosclerotic heart disease of native coronary artery without angina pectoris; E66.9 Obesity, unspecified; Z68.32 Body mass index [BMI] 32.0-32.9, adult; Z79.02 Long term (current) use of antithrombotics/antiplatelets; Z79.891 Long term (current) use of opiate analgesic; Z79.899 Other long term (current) drug therapy; Z98.890 Other specified postprocedural states; Z82.49 Family history of ischemic heart disease and other diseases of the circulatory system
CPT/HCPCS: 21931; 88304; J0690; J1100; J1200; J2003; J2250; J2405; J2704; J3010; J7120